=== PATIENT | male | born 1985 | race Caucasian/White ===

== ENCOUNTER 2020-04-16 16:11 | Inpatient (IN) | payer SELFPAY ==
[2020-04-16] VITALS (22 sets, daily range): BP systolic 114–145; BP diastolic 57–75; PULSE 96–103; RESP 16–20; TEMP 37.1–38.2; O2SAT 90–100; BMI 27.3
--- NOTE | ~2020-04-16 | XR_ITS ---
EXAMINATION: XR chest 2V EXAM DATE: 04/19/2020 12:21 INDICATION: Staph + blood cultures, kidney stone . TECHNIQUE: Frontal and lateral projections of the chest obtained and reviewed. Comparison is made to prior examination from 06/09/2006. FINDINGS: The lungs are clear. There are no pleural effusions. The cardiomediastinal silhouette is within normal limits. There is no pneumothorax suspected. The bones and soft tissues are unremarkab le. IMPRESSION: Normal chest x-ray exam. Reviewed, dictated and finalized at location A. LICENSER IMPRESSION: Normal chest x-ray exam.
--- NOTE | ~2020-04-16 | XR_ITS ---
EXAMINATION: XR retrograde pyelo w/stent RT DATE: 04/17/2020 11:25 INDICATION: Right ureteral stone. TECHNIQUE: 69 intraoperative fluoroscopic views of the abdomen and pelvis were obtained. I was not pr esent. Fluoroscopy exposure time was 27 seconds. COMPARISON: CT abdomen and pelvis 04/16/2020 FINDINGS: There is a persistent right-sided contrast nephrogram. There is a stone at the right ureter opelvic junction. The final images demonstrate a right internal ureteral stent in expected position. IMPRESSION: 1. Stone at the right ureteropelvic junction. Right internal ureteral stent in expected position. Reviewed, dictated and finalized at location A. RED CAR GUARD
--- NOTE | ~2020-04-16 | CT_ITS ---
EXAMINATION: CT abdomen pelvis w con DATE: 04/16/2020 17:27 INDICATION: Abdominal pain, nausea and diarrhea TECHNIQUE: Computed tomography (CT) of the abdomen and pelvis was performed with 100 mL Omnipaque-350 intravenous contrast. Automated exposure control and iterative reconstruction technique were employe d. The dose-length product was 1180.56 mGy-cm. COMPARISON: None FINDINGS: Lung bases are clear. Heart size is normal. No pericardial or pleural effusion. Liver, gallbladder, s pleen, pancreas and bilateral adrenal glands are normal. There are few tiny subcentimeter cysts in th e left kidney. 6 x 4 mm obstructing stone at the right ureteropelvic junction with mild right hydrone phrosis and mildly delayed right nephrogram. There is mild associated stranding about the right renal pelvis, proximal right ureter and inferior right perirenal space. Additional 3 mm and 1 mm stones in the inferior calyces of the right kidney. No stones at the left kidney or along the bilateral ureter s. Bladder is normal. There is some fluid within nondilated small bowel as well as in the proximal co holly consistent with given history of diarrhea. No bowel obstruction or abnormal bowel wall thickening . No free intraperitoneal gas or fluid. No pathologically enlarged abdominal or pelvic lymphadenopath y. Chronic mild anterior wedging at T9-T11 with mild to moderate lower thoracic spondylosis. Bilatera l decreased anterosuperior femoral head/neck offset with associated cystic change at the anterosuperi or femoral head neck junctions which can be seen with cam-type femoral acetabular impingement. IMPRESSION: 1. Right nephrolithiasis with obstructing 6 x 4 mm stone at the right ureteropelvic junction with mil d hydronephrosis and mildly delayed right nephrogram. Correlate with urinalysis to exclude associated urinary tract infection. Reviewed, dictated and finalized at location . IOLOGIST IMPRESSION: 1. Right nephrolithiasis with obstructing 6 x 4 mm stone at the right ureterope lvic junction with mild hydronephrosis and mildly delayed right nephrogram. Cor relate with urinalysis to exclude associated urinary tract infection.
[2020-04-16 16:42] LABS: Basophils Absolute Auto 0.1 K/mm3 (0.0-0.1); Basophils Percent Auto 0.3 % (0.2-1.2); Eosinophils Percent Auto 0.1 % (0-4.4); Hematocrit 40.4 % (42.0-52.0); Hemoglobin 13.7 g/dL (14.0-18.0); Immature Granulocyte Absolute 0.17 K/mm3 (0.00-0.031); Immature Granulocyte Percent A 0.7 % (0-0.5); Lymphocytes Absolute Auto 1.35 K/mm3 (0.9-3.2); Lymphocytes Percent Auto 5.9 % (18.3-44.2); Mean Corpuscular HGB Conc 33.9 g/dl (32-36); Mean Corpuscular Hemoglobin 30.6 pg (26-34); Mean Corpuscular Volume 90.4 fl (80-100); Mean Platelet Volume 10.5 fl (7.4-10.4); Monocytes Absolute Auto 1.8 K/mm3 (0.1-0.6); Neutrophils Absolute Auto 19.4 K/mm3 (1.3-6.7); Platelet Count Result 240 k/mm3 (150-375); Red Blood Count 4.47 M/mm3 (4.6-6.20); Red Cell Distribution Width 12.7 % (11.5-14.5); White Blood Count 22.8 K/mm3 (4.5-10.0)
[2020-04-16] MEDS: ONDANSETRON INJ 4 MG/2 ML VIAL IV PUSH (16:43)
[2020-04-16] MEDS: SODIUM CHLORIDE 0.9% IV 1,000 ML 999 ML IV CONT ×3 (16:43→19:33)
[2020-04-16] MEDS: FAMOTIDINE 20 MG/2 ML VIAL IV PUSH (16:43)
--- NOTE | 2020-04-16 16:51 | ED.ABDPAIN ---
HPI - Abdominal Pain General Chief Complaint: Abdominal Pain Stated Complaint: abd/back pain, poss constipation Time Seen by Provider: 04/16/20 16:19 Source: patient Mode of arrival: ambulatory Limitations: no limitations History of Present Illness HPI narrative: Patient a 34-year-old male who presents with left lower abdominal pain for the last 2 days with chills sweats and some nausea believes that he was constipation but does not have a history of ever being constipated patient notes he has also had some mild discomfort in his back patient presents in no distress does not appear uncomfortable nothing is made the symptoms better or worse despite the [id number] laxative medications he took patient has had no improvement patient denies sick contacts or URI symptoms Related Data Home Medications Medication Instructions Recorded Confirmed No Home Medications 04/16/20 04/16/20 Allergies Allergy/AdvReac Type Severity Reaction Status Date / Time Penicillins AdvReac Unknown Unknown Verified 04/16/20 16:30 Review of Systems Review of Systems: All systems reviewed & are unremarkable except as noted in HPI and below Exam Narrative: Exam Narrative: GENERAL: Well-appearing, well-nourished, and in no acute distress. HEAD: Normocephalic, atraumatic. EYES: PERRLA and EOMI. ENT: Nares clear, no rhinorrhea or epistaxis. Mucous membranes moist. CHEST: Clear to auscultation. No respiratory distress. No wheezes rales or rhonchi HEART: Regular rate and rhythm. No murmur heard. Normal peripheral pulses. ABDOMEN: Soft, left lower quadrant abdominal pain no rebound or guarding, nondistended, normal active bowel sounds. EXTREMITIES: Normal range of motion. No edema. SKIN: Warm, dry, no rash. NEURO: No focal deficits. Alert and oriented x3. Cranial nerves II through XII grossly intact PSYCH: Normal mood and affect. Course Course Emergency Course: Patient found to have kidney stone is the likely etiology with potential urinary tract infection will be placed in hospital hydrated pain managed and evaluated by hospitalist and urology with potential for stent placement in the morning patient is aware of the findings and discussions and agrees with the plan Consultations Consultation #1: Discussed case with urology in hospital who have agreed to admit and consult on the patient Date: 04/16/20 Time: 20:20 Vital Signs Vital signs: Vital Signs Temperature 98.8 F 04/16/20 16:15 Pulse Rate 102 H 04/16/20 16:15 Respiratory Rate 18 04/16/20 16:15 Blood Pressure 129/75 04/16/20 16:15 Pulse Oximetry 98 04/16/20 16:15 Temperature 98.8 F 04/16/20 16:15 Pulse Rate 102 H 04/16/20 16:15 Respiratory Rate 18 04/16/20 16:15 Blood Pressure 114/68 04/16/20 18:31 Pulse Oximetry 96 04/16/20 19:18 MDM - Abdominal Pain MDM Narrative Medical decision making narrative: Patient with urolithiasis urinary tract infection will be placed in hospital hydrated IV antibiotics with urology consult. Patient's pain is well controlled at this time Lab Data Result diagrams: 04/16/20 16:33 04/16/20 16:33 Labs: Lab Results 04/16/20 04/16/20 04/16/20 Range/Units 16:33 16:33 19:20 WBC 22.8 H (4.5-10.0) K/mm3 RBC 4.47 L (4.6-6.20) M/mm3 Hgb 13.7 L (14.0-18.0) g/dL Hct 40.4 L (42.0-52.0) % MCV 90.4 (80-100) fl MCH 30.6 (26-34) pg MCHC 33.9 (32-36) g/dl RDW 12.7 (11.5-14.5) % Plt Count 240 (150-375) k/mm3 MPV 10.5 H (7.4-10.4) fl Immature Gran % (Auto) 0.7 H (0-0.5) % Neut % (Auto) 85.0 H (45.5-73.1) % Lymph % (Auto) 5.9 L (18.3-44.2) % [place] % (Auto) 8.0 (2.6-8.5) % Eos % (Auto) 0.1 (0-4.4) % Baso % (Auto) 0.3 (0.2-1.2) % Lymph # (Auto) 1.35 (0.9-3.2) K/mm3 [place] # (Auto) 1.8 H (0.1-0.6) K/mm3 Eos # (Auto) 0.0 (0-0.3) K/mm3 Baso # (Auto) 0.1 (0.0-0.1) K/mm3 Abs Immat Gran (auto) 0.17 H (0.00-0.0
[2020-04-16 16:56] LABS: Alanine Aminotransferase 36 U/L (4-50); Albumin Level 4.4 g/dL (3.5-5.1); Alkaline Phosphatase 103 U/L (38-126); Anion Gap 7 mmol/L (8-16); Aspartate Amino Transferase 35 U/L (17-59); Bilirubin,Total 1.4 mg/dL (0.2-1.3); Blood Urea Nitrogen 19 mg/dL (9-20); Calcium 8.9 mg/dL (8.4-10.2); Carbon Dioxide 27 mmol/L (22-30); Chloride 100 mmol/L (98-107); Estimated CRCL calculation 73 ml/min; Estimated Glomerular Filt Rate 46; Glucose 106 mg/dL (75-110); Lipase 67 U/L (23-300); Potassium 3.9 mmol/L (3.4-5.0); Sodium 134 mmol/L (137-145)
--- NOTE | 2020-04-16 18:20 | PC.NURSE ---
Pt still unable to provide urine sample.
[2020-04-16] MEDS: MORPHINE SULFATE (*CRX) 4 MG/ML INJ IV PUSH ×2 (18:27→22:01)
[2020-04-16 19:40] LABS: Add Urine Microscopic? YES; Amorphous Sediment Urine Few; Appearance Urine Clear (Clear); Bacteria Urine Trace /hpf; Bilirubin Urine Negative (Negative); Blood Urine 1+ (Negative); Color Urine Yellow (Yellow); Glucose Urine UA Negative (Negative); Ketones Urine Negative (Negative); Leukocyte Esterase Ur 1+ LEU/UL (Negative); Mucus Urine Heavy /lpf; Nitrate Urine Negative (Negative); Protein Urine 1+ mg/dL (Negative); RBC Urine >75 /hpf (0-2); Urobilinogen Urine Negative mg/dL (<2.0); WBC Urine 51-75 /hpf
[2020-04-16 19:43] LABS: Specific Grav Ur 1.045 (1.001-1.035)
--- NOTE | 2020-04-16 21:18 | PM.IMHP ---
H&P: HPI History of Present Illness Date/Time: 04/16/20 21:18 Chief complaint: urolithiasis/acute kidney injury/UTI Narrative: This is a pleasant 34 year old male who presented to the hospital with 2 days of lower abdominal pain, diaphoresis, chills, and nausea. The patient started to notice that he was developing right lower back pain as well which did not seem to radiate anywhere. Initially he believes he may have been constipated because he believed he was bloated. He has been taking acetaminophen Advil at home for his pain. His pain was severe in nature and no position made it better. On arrival to the emergency room the patient was evaluated and found to be septic with tachycardia and leukocytosis of 22,800. Urinalysis was grossly abnormal. CT abdomen pelvis demonstrated a right nephrolithiasis with obstructing 6 x 4 mm stone at the right ureteropelvic junction with mild hydronephrosis and mildly delayed right nephrogram. the patient has no previous history of renal stones although he mentions that his great grandfather did. He denies any hematuria, chest pain, shortness of breath, cough, diarrhea, or rectal bleeding. We been asked to admit the patient to the hospital overnight for treatment of his complicated urinary tract infection and urology has been consulted for his renal stone. He has no other complaints at this time. Review of Systems Review of Systems: All systems reviewed & are unremarkable except as noted in HPI and below PMFSH Past Medical History Medical History No pertinent past medical history Family History Family History Grandparent Nephrolithiasis Social History Social History Tobacco type: e-cigarettes/vaping Alcohol intake: never Substance use: never Comments Past surgical history is reviewed and noncontributory. Meds Home Medications and Allergies Home Medications Medication Instructions Recorded Confirmed Type No Home Medications 04/16/20 04/16/20 History Allergies Allergy/AdvReac Type Severity Reaction Status Date / Time Penicillins AdvReac Unknown Unknown Verified 04/16/20 16:30 Vital Signs Vital Signs - 24 hr 04/16/20 16:15 04/16/20 16:20 04/16/20 16:30 Temperature 37.1 C Pulse Rate 102 H Respiratory Rate 18 Blood Pressure 129/75 Pulse Oximetry 98 96 95 04/16/20 16:31 04/16/20 16:32 04/16/20 16:45 Temperature Pulse Rate Respiratory Rate Blood Pressure 116/61 Pulse Oximetry 97 97 97 04/16/20 16:46 04/16/20 17:00 04/16/20 17:01 Temperature Pulse Rate Respiratory Rate Blood Pressure 119/65 114/62 Pulse Oximetry 98 99 97 04/16/20 17:30 04/16/20 17:31 04/16/20 17:45 Temperature Pulse Rate Respiratory Rate Blood Pressure 124/69 Pulse Oximetry 90 100 99 04/16/20 17:46 04/16/20 18:02 04/16/20 18:15 Temperature Pulse Rate Respiratory Rate Blood Pressure 121/71 Pulse Oximetry 98 98 97 04/16/20 18:31 04/16/20 18:32 04/16/20 19:18 Temperature Pulse Rate Respiratory Rate Blood Pressure 114/68 Pulse Oximetry 98 96 96 04/16/20 20:20 04/16/20 20:50 Temperature Pulse Rate 96 101 H Respiratory Rate 20 20 Blood Pressure 127/73 129/59 L Pulse Oximetry 99 100 Exam Const: General: cooperative, alert, awake, acute distress moderate, ill appearing and other ( diaphoretic) Nutritional Appearance: obese Orientation/consciousness: patient oriented x3 HENMT: Head: normal to inspection General nose exam: Normal external nose present Face and sinus: normal facial exam Mouth: Yes Normal oral and palatal mucosa present and Yes oropharynx normal Eyes: Pupils: Equal, round and reactive pupils present EOM: EOMs intact bilaterally Neck: Neck: supple and no JVD Thyroid: thyroid normal Lymphatic: l
--- NOTE | 2020-04-16 21:20 | ADMGEN ---
This patient, Ashok Osullivan, was admitted to Medical Room 250-01. Patient/family oriented to hospital policies and general routines including ID bracelet, bed and alarms, visiting hours, pain management, procedures, bathroom and other care routines, personal items, smoking policy, room service/diet, and visiting hours. Information on how to activate the Rapid Response Team has been discussed. Patient/Family are encouraged to report perceived risks to care and to ask questions if they do not understand what they are told or what they should do.
[2020-04-16] MEDS: LACTATED RINGERS 1,000 ML 125 ML IV CONT (22:00)
[2020-04-17] VITALS (11 sets, daily range): BP systolic 93–123; BP diastolic 51–64; PULSE 74–111; RESP 14–20; TEMP 36.2–37.9; O2SAT 92–100
[2020-04-17] MEDS: FAMOTIDINE 20 MG/2 ML VIAL IV PUSH ×3 (00:37→20:12)
[2020-04-17 05:23] LABS: Basophils Percent Auto 0.2 % (0.2-1.2); Hematocrit 35.2 % (42.0-52.0); Hemoglobin 11.9 g/dL (14.0-18.0); Immature Granulocyte Absolute 0.12 K/mm3 (0.00-0.031); Immature Granulocyte Percent A 0.7 % (0-0.5); Lymphocytes Absolute Auto 0.86 K/mm3 (0.9-3.2); Lymphocytes Percent Auto 4.9 % (18.3-44.2); Mean Corpuscular HGB Conc 33.8 g/dl (32-36); Mean Corpuscular Hemoglobin 30.1 pg (26-34); Mean Corpuscular Volume 88.9 fl (80-100); Mean Platelet Volume 10.8 fl (7.4-10.4); Monocytes Absolute Auto 1.7 K/mm3 (0.1-0.6); Monocytes Percent Auto 9.9 % (2.6-8.5); Neutrophils Absolute Auto 14.7 K/mm3 (1.3-6.7); Neutrophils Percent Auto 84.3 % (45.5-73.1); Platelet Count Result 198 k/mm3 (150-375); Red Blood Count 3.96 M/mm3 (4.6-6.20); Red Cell Distribution Width 12.9 % (11.5-14.5); White Blood Count 17.4 K/mm3 (4.5-10.0)
[2020-04-17 05:40] LABS: Anion Gap 7 mmol/L (8-16); Blood Urea Nitrogen 15 mg/dL (9-20); Calcium 8.1 mg/dL (8.4-10.2); Carbon Dioxide 24 mmol/L (22-30); Chloride 105 mmol/L (98-107); Estimated CRCL calculation 73 ml/min; Estimated Glomerular Filt Rate 46; Glucose 119 mg/dL (75-110); Potassium 3.8 mmol/L (3.4-5.0); Sodium 136 mmol/L (137-145)
[2020-04-17] MEDS: LACTATED RINGERS 1,000 ML 125 ML IV CONT ×2 (07:44→18:12)
[2020-04-17] MEDS: MORPHINE SULFATE (*CRX) 2 MG/ML INJ IV PUSH (07:59)
--- NOTE | 2020-04-17 08:48 | WPDURCON ---
Assessment and Plan Assessment and plan (1) Complicated UTI (urinary tract infection): Code(s): N39.0 - Urinary tract infection, site not specified Status: Acute (2) Right ureteral stone: Code(s): N20.1 - Calculus of ureter Status: Acute Assessment and Plan: Cystoscopy with right ureteral stent placement today (by Dr. Josias Dsouza). Right ESWL [id number], as outpatient - after thorough treatment of UTI. Urology Consult Note HPI Date Seen: 04/17/20 Requesting Physician: Bimal Davalos MD Primary Care Provider: Layla Moore, PA-C Consult Narrative Narrative: Ashok Osullivan is a 34 year old male without prior history of urolithiasis, presents to ER with 36-hours low-back pain, nausea and diaphoresis. CT-imaging in ER reveals a 6x4mm right UPJ stone. He denies gross hematuria, fever or significant irritable voiding. Review of Systems Cardiovascular: Cardiovascular: Denies chest pain, Denies lightheadedness, Denies palpitations and Denies dyspnea Respiratory: Respiratory: Denies dyspnea Gastrointestinal: Gastrointestinal: Denies diarrhea, Denies nausea and Denies vomiting Genitourinary: Genitourinary: Denies hematuria and Denies dysuria Endocrine: Endocrine: Denies palpitations PMFSH Past Medical History Medical History No pertinent past medical history Family History Family History Grandparent Nephrolithiasis Lung cancer Father Lung cancer Mother Hypertension Social History Social History Smoking status: Former smoker Tobacco type: e-cigarettes/vaping Second hand tobacco smoke exposure: Yes Alcohol intake: never Substance use: never Gender identity (if verbalized by the patient): Male Spiritual care concerns: No Meds Home Medications and Allergies Home Medications Medication Instructions Recorded Confirmed Type No Home Medications 04/16/20 04/16/20 History Allergies Allergy/AdvReac Type Severity Reaction Status Date / Time Penicillins AdvReac Unknown Unknown Verified 04/16/20 22:10 Vital Signs Vital Signs - 24 hr 04/16/20 16:15 04/16/20 16:20 04/16/20 16:30 Temperature 98.8 F Pulse Rate 102 H Respiratory Rate 18 Blood Pressure 129/75 Pulse Oximetry 98 96 95 04/16/20 16:31 04/16/20 16:32 04/16/20 16:45 Temperature Pulse Rate Respiratory Rate Blood Pressure 116/61 Pulse Oximetry 97 97 97 04/16/20 16:46 04/16/20 17:00 04/16/20 17:01 Temperature Pulse Rate Respiratory Rate Blood Pressure 119/65 114/62 Pulse Oximetry 98 99 97 04/16/20 17:30 04/16/20 17:31 04/16/20 17:45 Temperature Pulse Rate Respiratory Rate Blood Pressure 124/69 Pulse Oximetry 90 100 99 04/16/20 17:46 04/16/20 18:02 04/16/20 18:15 Temperature Pulse Rate Respiratory Rate Blood Pressure 121/71 Pulse Oximetry 98 98 97 04/16/20 18:31 04/16/20 18:32 04/16/20 19:18 Temperature Pulse Rate Respiratory Rate Blood Pressure 114/68 Pulse Oximetry 98 96 96 04/16/20 20:20 04/16/20 20:50 04/16/20 21:35 Temperature 100.7 F H Pulse Rate 96 101 H 103 H Respiratory Rate 20 20 16 Blood Pressure 127/73 129/59 L 145/57 H Pulse Oximetry 99 100 96 04/16/20 22:00 04/17/20 05:52 04/17/20 08:07 Temperature 100.2 F H 100.3 F H Pulse Rate 111 H 104 H Respiratory Rate 16 18 Blood Pressure 123/51 L Pulse Oximetry 92 94 Exam Const: General: no acute distress Resp: Effort & Inspection: normal respiratory effort GI: Inspection: non-distended GI Palp: No abdominal tenderness and No Guarding due to palpation present (GI) Auscultation: normal bowel sounds Results Labs CBC & Chem 7: 04/17/20 04:58 04/17/20 04:58 Labs: Short CBC 04/16/20
--- NOTE | 2020-04-17 09:39 | PC.NURSE ---
to surgery via bed, tylenol infusing, almost complete
--- NOTE | 2020-04-17 09:57 | WPDANESEPPF ---
Anes - Initial Pre Proc Eval Procedure: Operation Date: 04/17/20 11:45 Proposed Procedures p Cystoscopy, Right Stent Placement(Right) - Sheng Dsouza MD Date/Time: 04/17/20 09:57 Surgeon: Bimal Davalos MD Pre Op Diagnosis: urolithiasis/acute kidney injury/UTI Patient Data Age: 34 Gender: M Height: 2.01 m Weight: 110.1 kg Last Vital Signs Temp 37.9 C H 04/17/20 05:52 Pulse 104 H 04/17/20 08:07 Resp 18 04/17/20 08:07 BP 123/51 L 04/17/20 05:52 Pulse Ox 94 04/17/20 08:07 Allergies Allergy/AdvReac Type Severity Reaction Status Date / Time Penicillins AdvReac Unknown Unknown Verified 04/16/20 22:10 Home Medications Medication Instructions Recorded Confirmed Type No Home Medications 04/16/20 04/16/20 History Laboratory Tests 04/16/20 04/16/20 04/16/20 16:33 16:33 19:20 WBC 22.8 K/mm3 H K/mm3 (4.5-10.0) RBC 4.47 M/mm3 L M/mm3 (4.6-6.20) Hgb 13.7 g/dL L g/dL (14.0-18.0) Hct 40.4 % L % (42.0-52.0) MCV 90.4 fl fl (80-100) MCH 30.6 pg pg (26-34) MCHC 33.9 g/dl g/dl (32-36) RDW 12.7 % % (11.5-14.5) Plt Count 240 k/mm3 k/mm3 (150-375) MPV 10.5 fl H fl (7.4-10.4) Immature Gran % (Auto) 0.7 % H % (0-0.5) Neut % (Auto) 85.0 % H % (45.5-73.1) Lymph % (Auto) 5.9 % L % (18.3-44.2) [place] % (Auto) 8.0 % % (2.6-8.5) Eos % (Auto) 0.1 % % (0-4.4) Baso % (Auto) 0.3 % % (0.2-1.2) Lymph # (Auto) 1.35 K/mm3 K/mm3 (0.9-3.2) [place] # (Auto) 1.8 K/mm3 H K/mm3 (0.1-0.6) Eos # (Auto) 0.0 K/mm3 K/mm3 (0-0.3) Baso # (Auto) 0.1 K/mm3 K/mm3 (0.0-0.1) Abs Immat Gran (auto) 0.17 K/mm3 H K/mm3 (0.00-0.031) Absolute Neuts (auto) 19.4 K/mm3 H K/mm3 (1.3-6.7) Absolute Nucleated RBC 0.0 K/mm3 K/mm3 (0.0-0.012) Nucleated RBC % 0.0 % % (0.0-0.2) Sodium 134 mmol/L L mmol/L (137-145) Potassium 3.9 mmol/L mmol/L (3.4-5.0) Chloride 100 mmol/L mmol/L (98-107) Carbon Dioxide 27 mmol/L mmol/L (22-30) Anion Gap 7 mmol/L L mmol/L (8-16) BUN 19 mg/dL mg/dL (9-20) Creatinine 1.70 mg/dL H mg/dL (0.7-1.3) Estim Creat Clear Calc 73 ml/min ml/min Estimated GFR 46 L (59 - ) Glucose 106 mg/dL mg/dL (75-110) Calcium 8.9 mg/dL mg/dL (8.4-10.2) Total Bilirubin 1.4 mg/dL H mg/dL (0.2-1.3) AST 35 U/L U/L (17-59) ALT 36 U/L U/L (4-50) Alkaline Phosphatase 103 U/L U/L (38-126) Total Protein 8.0 g/dL g/dL (6.3-8.2) Albumin 4.4 g/dL g/dL (3.5-5.1) Lipase 67 U/L U/L (23-300) Urine Color Yellow (Yellow) Urine Appearance Clear (Clear) Urine pH 7.0 (5.0-9.0) Ur Specific [place] 1.045 H (1.001-1.035) Urine Protein 1+ mg/dL H mg/dL (Negative) Urine Glucose (UA) Negative mg/dL mg/dL (Negative) Urine Ketones Negative mg/dL mg/dL (Negative) Ur Blood (Man) 1+ H (Negative) Urine Nitrate Negative (Negative) Urine Bilirubin Negative (Negative) Urine Urobilinogen Negative mg/dL mg/dL (<2.0) Leukocyte Esterase Rfl 1+ GENTRY/UL H GENTRY/UL (Negative) Urine RBC >75 /hpf H /hpf (0-2) Urine WBC 51-75 /hpf H /hpf Amorphous Sediment Few H (None) Urine Bacteria Trace /hpf /hpf Urine Mucus Heavy /lpf H /lpf 04/17/20 04/17/20 04:58 04:58 WBC 17.4 K/mm3 H K/mm3 (4.5-10.0) RBC 3.96 M/mm3 L M/mm3 (4.6-6.20) Hgb 11.9 g/dL L g/dL (14.0-18.0) Hct 35.2 % L % (42.0-52.0) MCV 88.9 fl fl (80-100) MCH 30.1 pg pg (26-34) MCHC
[2020-04-17] MEDS: LACTATED RINGERS 1,000 ML 30 ML IV CONT ×2 (10:22→11:35)
--- NOTE | 2020-04-17 11:08 | PM.IMPN ---
Progress Note: A&P Assessment and Plan (1) Complicated UTI (urinary tract infection): Code(s): N39.0 - Urinary tract infection, site not specified Status: Acute Assessment and Plan: Suspect associated with obstructive uropathy. UA grossly abnormal. Continue IV rocephin (day 2) while awaiting urine cultures. Obtain blood cultures this morning although results may be altered as he received abx last night. (2) Sepsis: Qualifiers: Sepsis type: sepsis due to unspecified organism Sepsis acute organ dysfunction status: with acute organ dysfunction Severe sepsis acute organ dysfunction type: acute renal failure Acute renal failure type: unspecified Severe sepsis shock status: without septic shock Qualified Code(s): A41.9 - Sepsis, unspecified organism; R65.20 - Severe sepsis without septic shock; N17.9 - Acute kidney failure, unspecified Code(s): A41.9 - Sepsis, unspecified organism Status: Acute Assessment and Plan: Evidenced by fever, tachycardia, leukocytosis. Suspected source is above. Continue IV antibiotics, monitor cultures, monitor vital signs and urine output. (3) Urolithiasis: Qualifiers: Urinary calculus location: lower urinary tract Qualified Code(s): N21.9 - Calculus of lower urinary tract, unspecified Code(s): N20.9 - Urinary calculus, unspecified Status: Acute Assessment and Plan: Patient presents with right flank pain. CT shows right nephrolithiasis with obstructing 6 x 4 mm stone at right UPJ, associated mild hydronephrosis. Appreciate urology recommendations. Plan is for cysto/ R ureteral stent placement this morning. (4) Acute kidney injury: Code(s): N17.9 - Acute kidney failure, unspecified Status: Acute Assessment and Plan: Suspect secondary to obstructive nephrolithiasis. Continue IV hydration, avoid nephrotoxic agents, and monitor renal function. (5) Tobacco dependence: Code(s): F17.200 - Nicotine dependence, unspecified, uncomplicated Status: Chronic Assessment and Plan: Smoking cessation education provided. Subjective Date/time seen: 04/17/20 0915 Interval history: Mr. Osullivan is a 34yo M admitted for UTI and obstructive right ureteral stone. He has been seen by urology and is heading to OR soon for right ureteral stent placement. This morning he reports a frontal headache and right flank pain that wraps to groin. He denies nausea or vomiting. Had chills with fever overnight. He denies chest pain or shortness of breath, although sometimes the sharp shooting pain to right flank takes his breath away. He denies dysuria or hematuria. Review of Systems Review of Systems: All systems reviewed & are unremarkable except as noted in HPI and below Exam Narrative: Exam Narrative: General: Male resting comfortably supine in bed in no acute distress. HEENT: Normocephalic, EOMI, oral mucosa moist. Cardiovascular: Rate and rhythm are regular. Respiratory: Lungs clear to auscultation all childress. Non-labored breathing. Abdomen: Soft, non-distended, bowel sounds present. Right lower quadrant and right flank tender to palpation without guarding. Extremities: Peripheral pulses intact. No edema. Neuro: No focal neurological deficits. Speech is clear. Objective Data Vital Signs Vital Signs: Last Vital Signs Temp 97.7 F 04/17/20 11:23 Pulse 80 04/17/20 11:50 Resp 18 04/17/20 11:50 BP 100/51 L 04/17/20 11:50 Pulse Ox 93 04/17/20 11:50 Intake/Output Intake/Output: Intake & Output 04/14/20 04/15/20 04/16/20 04/17/20 23:59 23:59 23:59 23:59 Intake Total 3050 1600 Output Total 2350 Balance 3050 -750 Meds/Results Medications: Active Medications
--- NOTE | 2020-04-17 11:16 | P.OP_ITS ---
Procedure Note - Detailed Date of procedure: 04/17/20 Pre-op diagnosis: urolithiasis/acute kidney injury/UTI Post-op diagnosis: same Procedure performed: Cystoscopy, right retrograde pyelogram, right stent Description of procedure: She was correctly identified and informed consent obtained. Brought to the operating room. Given mac anesthesia. He was prepped and draped in sterile fashion. Time-out performed. Cystoscopy revealed normal- appearing bladder without abnormalities. If the stone is visible on fluoroscopy. I did a gentle retrograde pyelogram on the right to highlight ureteral anatomy. The stone was seen at the ureteropelvic junction. I placed a guidewire into the kidney. I placed 4.8 ureteral stent. Proximal coil in the upper pole kidney. Distal coil the bladder. The bladder was drained. Awakened transferred to PACU stable condition. Anesthesia: MAC Surgeon: Sheng Dsouza MD Estimated blood loss (mL): 0 Drains: Yes (4.8 variable length stent) Packing: No Pathology: none sent Complications: No immediate complications Condition: stable Disposition: PACU
[2020-04-17] MEDS: LIDOCAINE HCL 2% GEL UROJET 10 ML PKG MUCOUS MEM (11:18)
--- NOTE | 2020-04-17 12:09 | PC.NURSE ---
pt returned from surgery via bed, able to ambulate to bathroom without difficulty, doing well
[2020-04-17] MEDS: HYDROcodone/acetaminophen (*CRX) 5-325 MG TABLET 2 TAB PO ×2 (13:44→22:58)
[2020-04-17] MEDS: OXYBUTYNIN CHLORIDE 5 MG TABLET PO (13:46)
[2020-04-18 02:00] VITALS: BP 103/52; PULSE 87; RESP 20; TEMP 36.5; O2SAT 99
[2020-04-18] MEDS: LACTATED RINGERS 1,000 ML 125 ML IV CONT ×3 (02:49→19:43)
[2020-04-18 05:54] LABS: Basophils Percent Auto 0.3 % (0.2-1.2); Eosinophils Absolute Auto 0.1 K/mm3 (0-0.3); Eosinophils Percent Auto 1.3 % (0-4.4); Hematocrit 32.2 % (42.0-52.0); Hemoglobin 10.6 g/dL (14.0-18.0); Immature Granulocyte Absolute 0.04 K/mm3 (0.00-0.031); Immature Granulocyte Percent A 0.4 % (0-0.5); Lymphocytes Absolute Auto 1.11 K/mm3 (0.9-3.2); Lymphocytes Percent Auto 12.2 % (18.3-44.2); Mean Corpuscular HGB Conc 32.9 g/dl (32-36); Mean Corpuscular Volume 91.2 fl (80-100); Mean Platelet Volume 10.7 fl (7.4-10.4); Monocytes Absolute Auto 0.9 K/mm3 (0.1-0.6); Monocytes Percent Auto 9.3 % (2.6-8.5); Neutrophils Percent Auto 76.5 % (45.5-73.1); Platelet Count Result 170 k/mm3 (150-375); Red Blood Count 3.53 M/mm3 (4.6-6.20); Red Cell Distribution Width 13.2 % (11.5-14.5); White Blood Count 9.1 K/mm3 (4.5-10.0)
[2020-04-18 06:00] VITALS: BP 111/61; PULSE 85; RESP 20; TEMP 36.4; O2SAT 98
[2020-04-18 06:05] LABS: Anion Gap 5 mmol/L (8-16); Blood Urea Nitrogen 13 mg/dL (9-20); Calcium 7.9 mg/dL (8.4-10.2); Carbon Dioxide 29 mmol/L (22-30); Chloride 103 mmol/L (98-107); Estimated CRCL calculation 89 ml/min; Estimated Glomerular Filt Rate 58; Glucose 105 mg/dL (75-110); Magnesium 2.2 mg/dL (1.6-2.3); Potassium 3.9 mmol/L (3.4-5.0); Sodium 137 mmol/L (137-145)
[2020-04-18] MEDS: BISACODYL 5 MG TABLET EC PO (09:28)
[2020-04-18] MEDS: HYDROcodone/acetaminophen (*CRX) 5-325 MG TABLET 2 TAB PO (09:29)
[2020-04-18] MEDS: polyethylene glycoL 3350 17 GM POWD.PACK PO (09:29)
[2020-04-18 10:15] VITALS: BP 123/69; PULSE 81; RESP 16; TEMP 37.4; O2SAT 97
[2020-04-18] MEDS: FAMOTIDINE 20 MG/2 ML VIAL IV PUSH ×2 (11:07→21:40)
[2020-04-18 13:55] VITALS: BP 132/70; PULSE 65; RESP 16; TEMP 36.7; O2SAT 97
--- NOTE | 2020-04-18 15:05 | PM.IMPN ---
Progress Note: A&P Assessment and Plan (1) Complicated UTI (urinary tract infection): Code(s): N39.0 - Urinary tract infection, site not specified Status: Acute Assessment and Plan: Suspect associated with obstructive uropathy. UA grossly abnormal although urine culture is negative. Continue IV rocephin (day 3). Blood cultures one of two is growing gram positive cocci; suspect this could be a contaminant but will keep patient overnight and repeat blood cultures. Hopeful for discharge tomorrow once organism is isolated if patient is feeling well. (2) Sepsis: Qualifiers: Sepsis type: sepsis due to unspecified organism Sepsis acute organ dysfunction status: with acute organ dysfunction Severe sepsis acute organ dysfunction type: acute renal failure Acute renal failure type: unspecified Severe sepsis shock status: without septic shock Qualified Code(s): A41.9 - Sepsis, unspecified organism; R65.20 - Severe sepsis without septic shock; N17.9 - Acute kidney failure, unspecified Code(s): A41.9 - Sepsis, unspecified organism Status: Acute Assessment and Plan: Evidenced by fever, tachycardia, leukocytosis. Suspected source is above. Continue IV antibiotics, monitor cultures, monitor vital signs and urine output. (3) Urolithiasis: Qualifiers: Urinary calculus location: lower urinary tract Qualified Code(s): N21.9 - Calculus of lower urinary tract, unspecified Code(s): N20.9 - Urinary calculus, unspecified Status: Acute Assessment and Plan: Patient presents with right flank pain. CT shows right nephrolithiasis with obstructing 6 x 4 mm stone at right UPJ, associated mild hydronephrosis. Appreciate urology recommendations, now s/p cysto/ R ureteral stent placement 04/17. (4) Acute kidney injury: Code(s): N17.9 - Acute kidney failure, unspecified Status: Acute Assessment and Plan: Suspect secondary to obstructive nephrolithiasis. Continue IV hydration, avoid nephrotoxic agents, and monitor renal function. (5) Tobacco dependence: Code(s): F17.200 - Nicotine dependence, unspecified, uncomplicated Status: Chronic Assessment and Plan: Smoking cessation education provided. (6) Constipation: Code(s): K59.00 - Constipation, unspecified Status: Acute Assessment and Plan: Start miralax and dulcolax. Subjective Date/time seen: 04/18/20 0930 Interval history: Mr. Osullivan is a 34yo M admitted for UTI and obstructive right ureteral stone POD#1 s/p right ureteral stent placement. He is feeling a bit improved today. His biggest complaint is abdominal bloating and constipation. Last BM 3 or 4 days ago per patient. He had hematuria last night and this morning. He denies nausea or vomiting. No chest pain or shortness of breath. Review of Systems Review of Systems: All systems reviewed & are unremarkable except as noted in HPI and below Exam Narrative: Exam Narrative: General: Male resting comfortably supine in bed in no acute distress. HEENT: Normocephalic, EOMI, oral mucosa moist. Cardiovascular: Rate and rhythm are regular. Respiratory: Lungs clear to auscultation all childress. Non-labored breathing. Abdomen: Soft, non-distended, bowel sounds present. Right lower quadrant and right flank discomfort to palpation without guarding but improved from yesterday. Extremities: Peripheral pulses intact. No edema. Neuro: No focal neurological deficits. Speech is clear. Objective Data Vital Signs Vital Signs: Last Vital Signs Temp 98.0 F 04/18/20 13:55 Pulse 65 04/18/20 13:55 Resp 16 04/18/20 13:55 BP 132/70 04/18/20 13:55 Pulse Ox 97
[2020-04-18 17:57] VITALS: BP 143/68; PULSE 71; RESP 18; TEMP 37.2; O2SAT 100
[2020-04-18] MEDS: ACETAMINOPHEN 325 MG TABLET 650 MG PO (19:40)
[2020-04-18 20:00] VITALS: BP 141/65; PULSE 64; RESP 20; TEMP 37.1; O2SAT 99
[2020-04-19 02:00] VITALS: BP 140/80; PULSE 67; RESP 20; TEMP 36.7; O2SAT 98
[2020-04-19] MEDS: HYDROcodone/acetaminophen (*CRX) 5-325 MG TABLET 2 TAB PO ×3 (05:31→20:47)
[2020-04-19] MEDS: LACTATED RINGERS 1,000 ML 125 ML IV CONT (05:31)
[2020-04-19] MEDS: OXYBUTYNIN CHLORIDE 5 MG TABLET PO (05:39)
[2020-04-19] MEDS: BISACODYL 5 MG TABLET EC PO (05:39)
[2020-04-19 06:00] VITALS: BP 139/80; PULSE 72; RESP 20; TEMP 36.9; O2SAT 98
[2020-04-19 06:13] LABS: Basophils Percent Auto 0.4 % (0.2-1.2); Eosinophils Absolute Auto 0.2 K/mm3 (0-0.3); Eosinophils Percent Auto 2.2 % (0-4.4); Hematocrit 35.6 % (42.0-52.0); Hemoglobin 11.8 g/dL (14.0-18.0); Immature Granulocyte Absolute 0.03 K/mm3 (0.00-0.031); Immature Granulocyte Percent A 0.4 % (0-0.5); Lymphocytes Absolute Auto 1.06 K/mm3 (0.9-3.2); Lymphocytes Percent Auto 13.4 % (18.3-44.2); Mean Corpuscular HGB Conc 33.1 g/dl (32-36); Mean Corpuscular Hemoglobin 29.5 pg (26-34); Mean Platelet Volume 11.4 fl (7.4-10.4); Monocytes Absolute Auto 0.7 K/mm3 (0.1-0.6); Monocytes Percent Auto 8.6 % (2.6-8.5); Neutrophils Absolute Auto 5.9 K/mm3 (1.3-6.7); Platelet Count Result 236 k/mm3 (150-375); Red Cell Distribution Width 12.8 % (11.5-14.5); White Blood Count 7.9 K/mm3 (4.5-10.0)
[2020-04-19 06:33] LABS: Alanine Aminotransferase 73 U/L (4-50); Albumin Level 3.7 g/dL (3.5-5.1); Alkaline Phosphatase 63 U/L (38-126); Anion Gap 10 mmol/L (8-16); Aspartate Amino Transferase 72 U/L (17-59); Bilirubin,Total 0.7 mg/dL (0.2-1.3); Blood Urea Nitrogen 12 mg/dL (9-20); Calcium 8.8 mg/dL (8.4-10.2); Carbon Dioxide 25 mmol/L (22-30); Chloride 104 mmol/L (98-107); Estimated CRCL calculation 111 ml/min; Estimated Glomerular Filt Rate > 60; Glucose 100 mg/dL (75-110); Potassium 3.6 mmol/L (3.4-5.0); Sodium 139 mmol/L (137-145)
[2020-04-19] MEDS: FAMOTIDINE 20 MG/2 ML VIAL IV PUSH ×2 (08:56→20:12)
[2020-04-19] MEDS: polyethylene glycoL 3350 17 GM POWD.PACK PO (08:56)
[2020-04-19 09:40] VITALS: BP 116/62; PULSE 65; RESP 18; TEMP 36.4; O2SAT 99
--- NOTE | 2020-04-19 10:09 | P.PNAN_ITS ---
Anes - Prog Note Post-Op Date/Time: 04/19/20 10:09 Cardiovascular status: normal Respiratory status: normal Airway patency: baseline Mental status: baseline Post-Op hydration status: normal Vital Signs: Last Vital Signs Temp 36.4 C 04/19/20 09:40 Pulse 65 04/19/20 09:40 Resp 18 04/19/20 09:40 BP 116/62 04/19/20 09:40 Pulse Ox 99 04/19/20 09:40 Pain Score (VAS): 2 I/O: Intake & Output 04/18/20 04/19/20 04/19/20 23:59 07:59 15:59 Intake Total 2660 2200 980 Output Total 900 1900 Balance 1760 300 980 Laboratory Tests 04/19/20 04:57 04/19/20 04:57 04/19/20 04/19/20 04:57 04:57 WBC 7.9 RBC 4.00 L Hgb 11.8 L Hct 35.6 L MCV 89.0 MCH 29.5 MCHC 33.1 RDW 12.8 Plt Count 236 MPV 11.4 H Immature Gran % (Auto) 0.4 Neut % (Auto) 75.0 H Lymph % (Auto) 13.4 L [place] % (Auto) 8.6 H Eos % (Auto) 2.2 Baso % (Auto) 0.4 Lymph # (Auto) 1.06 [place] # (Auto) 0.7 H Eos # (Auto) 0.2 Baso # (Auto) 0.0 Abs Immat Gran (auto) 0.03 Absolute Neuts (auto) 5.9 Absolute Nucleated RBC 0.0 Nucleated RBC % 0.0 Sodium 139 Potassium 3.6 Chloride 104 Carbon Dioxide 25 Anion Gap 10 BUN 12 Creatinine 1.10 Estim Creat Clear Calc 111 Estimated GFR > 60 Glucose 100 Calcium 8.8 Total Bilirubin 0.7 AST 72 H ALT 73 H Alkaline Phosphatase 63 Total Protein 7.0 Albumin 3.7 Microbiology 04/17/20 08:36 Blood Blood Culture - Preliminary 04/17/20 08:42 Blood Blood Culture - Preliminary Post-procedural complaints: none Patient Feedback: Patient satisfied with anesthetic care.
--- NOTE | 2020-04-19 10:45 | PM.IMPN ---
Progress Note: A&P Assessment and Plan (1) Urolithiasis: Qualifiers: Urinary calculus location: lower urinary tract Qualified Code(s): N21.9 - Calculus of lower urinary tract, unspecified Code(s): N20.9 - Urinary calculus, unspecified Status: Acute Assessment and Plan: Patient presents with right flank pain. CT shows right nephrolithiasis with obstructing 6 x 4 mm stone at right UPJ, associated mild hydronephrosis. Appreciate urology recommendations, now s/p cysto/ R ureteral stent placement 04/17. (2) Positive blood culture: Code(s): R78.81 - Bacteremia Status: Acute Assessment and Plan: Initial blood cultures were drawn 04/17 (one dose of ceftriaxone was given prior to these being drawn, drawn prior to OR) now growing Staph aureus. Etiology unclear; No overt evidence of skin/soft tissue infection, denies IV drug use, no history of valvular disease or other devices. Obtain 2D echocardiogram tomorrow. Obtain CXR for completeness sake although pneumonia appears less likely. Continue vancomycin for now (started 04/18) and appreciate Dr Carvajal's recommendations in this setting. (3) Complicated UTI (urinary tract infection): Code(s): N39.0 - Urinary tract infection, site not specified Status: Acute Assessment and Plan: Suspect associated with obstructive uropathy now s/p right ureteral stent 04/17. UA grossly abnormal although urine culture is negative. Continue IV rocephin (day 4) for now pending ID consult. (4) Sepsis: Qualifiers: Sepsis type: sepsis due to unspecified organism Sepsis acute organ dysfunction status: with acute organ dysfunction Severe sepsis acute organ dysfunction type: acute renal failure Acute renal failure type: unspecified Severe sepsis shock status: without septic shock Qualified Code(s): A41.9 - Sepsis, unspecified organism; R65.20 - Severe sepsis without septic shock; N17.9 - Acute kidney failure, unspecified Code(s): A41.9 - Sepsis, unspecified organism Status: Acute Assessment and Plan: Evidenced by fever, tachycardia, leukocytosis. Suspected source was urinary however could be bloodborne given recent findings. Continue IV antibiotics, monitor cultures, monitor vital signs and urine output. (5) Acute kidney injury: Code(s): N17.9 - Acute kidney failure, unspecified Status: Acute Assessment and Plan: Resolved; Suspect secondary to obstructive nephrolithiasis. Stop IV fluids, avoid nephrotoxic agents, and monitor renal function. (6) Tobacco dependence: Code(s): F17.200 - Nicotine dependence, unspecified, uncomplicated Status: Chronic Assessment and Plan: Smoking cessation education provided. (7) Constipation: Qualifiers: Constipation type: unspecified constipation type Qualified Code(s): K59.00 - Constipation, unspecified Code(s): K59.00 - Constipation, unspecified Status: Acute Assessment and Plan: Continue miralax and dulcolax. Increase activity. Subjective Date/time seen: 04/19/20 0930 Interval history: Mr. Osullivan is a 34yo M admitted for UTI and obstructive right ureteral stone POD#2 s/p right ureteral stent placement. He is feeling improved today but still constipated. Hematuria is improving and almost resolved. He denies chest pain or shortness of breath. Tolerating oral intake without any nausea, vomiting, or abdominal pain. He denies any IV drug use in the past or recently. Review of Systems Review of Systems: All systems reviewed & are unremarkable except as noted in HPI and below Exam Narrative: Exam Narrative:
[2020-04-19 13:23] VITALS: BP 140/76; PULSE 66; RESP 18; TEMP 36.5; O2SAT 99
[2020-04-19 18:10] VITALS: BP 125/62; PULSE 70; RESP 18; TEMP 36.7; O2SAT 99
[2020-04-19 22:00] VITALS: BP 119/61; PULSE 58; RESP 21; TEMP 36.6; O2SAT 100
[2020-04-20] VITALS (7 sets, daily range): BP systolic 110–144; BP diastolic 60–84; PULSE 58–91; RESP 18–20; TEMP 36.3–37.1; O2SAT 98–100
--- NOTE | 2020-04-20 | ECHO_ITS ---
Patient Info Name: Ashok Osullivan Age: 34 years : 1985 Gender: Male Ht: 73 in Wt: 242 lbs BSA: 2.41 m2 HR: 60 bpm BP: 144 / 84 mmHg Heart Rhythm: Sinus Rhythm Technical Quality: Good Exam Date: 04/20/2020 10:36 AM Exam Location: [facility] Card Pulmonary Patient Status: Inpatient Admit Date: 04/16/2020 Staff Ordering Physician: Ana Lilia Pacheco PA-C Contract Attorney: Jamarcus Mesa RDCS Attending Provider: Ana Lilia Pacheco PA-C Exam Type: CA echo doppler color flow Study Info Indications R65.20 - Severe sepsis without septic shock Complete two-dimensional, color flow and Doppler transthoracic echocardiogram is performed. History/Risk Factors Sepsis w/ positive blood cultures w/ UTI. Summary 1. Complete two-dimensional, color flow and Doppler transthoracic echocardiogram is performed. 2. Left ventricular chamber dimension is normal. 3. Left ventricular systolic function is normal, estimated at 60-65%. 4. There is no increased left ventricular wall thickness. 5. The left ventricular diastolic function is normal. 6. There is mild tricuspid valve regurgitation. 7. No obvious endocarditis is seen although this is not a definitive study for analysis. Left Ventricle Left ventricular chamber dimension is normal. Left ventricular systolic function is normal, estimated at 60-65%. There is no increased left ventricular wall thickness. The left ventricular diastolic function is normal. Right Ventricle Right ventricular chamber dimension is normal. Right ventricular systolic function is normal. Left Atria Left atrial chamber dimension is normal. Right Atria Right atrial chamber dimension is normal. Atrial Septum Intact interatrial septum visualized by color flow imaging. Aortic Valve The aortic valve is trileaflet. There is no aortic valve sclerosis. There is no aortic valve stenosis. There is trace aortic valve regurgitation. Pulmonic Valve The pulmonic valve is normal. There is no pulmonic valve stenosis. There is trace pulmonic regurgitation. Mitral Valve The mitral valve has normal leaflets. There is no mitral valve stenosis. There is trace mitral valve regurgitation. Tricuspid Valve The tricuspid valve leaflets are normal. There is no significant tricuspid valve stenosis. There is mild tricuspid valve regurgitation. No pulmonary hypertension, estimated pulmonary arterial systolic pressure is 26 mmHg. Other Findings No obvious endocarditis is seen although this is not a definitive study for analysis. Pericardium/Pleural The pericardium appears normal. There is no pericardial effusion. Inferior Vena Cava Normal inferior vena cava with >50% collapse upon inspiration consistent with normal right atrial pressure, 5 mmHg. Aorta The aortic root size at the sinus of Valsalva is normal. Left Ventricular Outflow Tract Name Value Normal LVOT 2D LVOT Diameter 2.4 cm LVOT Doppler LVOT Peak Gradient 8 mmHg LVOT Mean Gradient 4 mmHg LVOT VTI 25 cm
[2020-04-20 05:59] LABS: Anion Gap 9 mmol/L (8-16); Blood Urea Nitrogen 13 mg/dL (9-20); Calcium 8.8 mg/dL (8.4-10.2); Carbon Dioxide 30 mmol/L (22-30); Chloride 100 mmol/L (98-107); Estimated CRCL calculation 122 ml/min; Estimated Glomerular Filt Rate > 60; Glucose 86 mg/dL (75-110); Potassium 3.7 mmol/L (3.4-5.0); Sodium 139 mmol/L (137-145)
[2020-04-20 06:02] LABS: Basophils Percent Auto 0.4 % (0.2-1.2); Eosinophils Absolute Auto 0.2 K/mm3 (0-0.3); Eosinophils Percent Auto 3.2 % (0-4.4); Hematocrit 41.9 % (42.0-52.0); Hemoglobin 13.8 g/dL (14.0-18.0); Immature Granulocyte Absolute 0.03 K/mm3 (0.00-0.031); Immature Granulocyte Percent A 0.4 % (0-0.5); Lymphocytes Absolute Auto 1.44 K/mm3 (0.9-3.2); Lymphocytes Percent Auto 19.4 % (18.3-44.2); Mean Corpuscular HGB Conc 32.9 g/dl (32-36); Mean Corpuscular Hemoglobin 30.1 pg (26-34); Mean Corpuscular Volume 91.3 fl (80-100); Mean Platelet Volume 10.9 fl (7.4-10.4); Monocytes Absolute Auto 0.6 K/mm3 (0.1-0.6); Monocytes Percent Auto 7.5 % (2.6-8.5); Neutrophils Absolute Auto 5.1 K/mm3 (1.3-6.7); Neutrophils Percent Auto 69.1 % (45.5-73.1); Platelet Count Result 278 k/mm3 (150-375); Red Blood Count 4.59 M/mm3 (4.6-6.20); White Blood Count 7.4 K/mm3 (4.5-10.0)
[2020-04-20 06:18] LABS: Vancomycin Trough 7.7 ug/mL (10.0-20.0)
[2020-04-20] MEDS: HYDROcodone/acetaminophen (*CRX) 5-325 MG TABLET 2 TAB PO (06:33)
[2020-04-20] MEDS: polyethylene glycoL 3350 17 GM POWD.PACK PO (07:47)
--- NOTE | 2020-04-20 08:07 | WPDUROPN2 ---
Progress Note: A&P Assessment and Plan (1) Right ureteral stone: Code(s): N20.1 - Calculus of ureter Status: Acute Assessment and Plan: okay for discharge from standpoint on pain meds and ABX. Will will call to set up stone management (2) Sepsis: Qualifiers: Sepsis type: sepsis due to unspecified organism Sepsis acute organ dysfunction status: with acute organ dysfunction Severe sepsis acute organ dysfunction type: acute renal failure Acute renal failure type: unspecified Severe sepsis shock status: without septic shock Qualified Code(s): A41.9 - Sepsis, unspecified organism; R65.20 - Severe sepsis without septic shock; N17.9 - Acute kidney failure, unspecified Code(s): A41.9 - Sepsis, unspecified organism Status: Acute Assessment and Plan: ABX per primary team/ID Subjective Subjective Date/Time Seen: 04/20/20 08:07 Tolerating stent. urine culture suprisingly negative. blood culture positive Exam Const: General: cooperative, healthy appearing, comfortable and no acute distress HENMT: Head: normal to inspection Mouth: Yes Normal oral and palatal mucosa present Resp: Effort & Inspection: normal respiratory effort and able to speak in complete sentences Neuro: General: patient oriented x3 Objective Data Vital Signs Vital Signs: Vital Signs - 24 hr 04/19/20 09:40 04/19/20 13:23 04/19/20 18:10 Temperature 97.6 F 97.7 F 98.0 F Pulse Rate 65 66 70 Respiratory Rate 18 18 18 Blood Pressure 116/62 140/76 125/62 Pulse Oximetry 99 99 99 04/19/20 22:00 04/20/20 02:00 04/20/20 06:00 Temperature 97.9 F 97.7 F 97.4 F L Pulse Rate 58 L 58 L 64 Respiratory Rate 21 H 20 20 Blood Pressure 119/61 110/63 128/60 Pulse Oximetry 100 98 99 Intake/Output Intake/Output: Intake & Output 04/17/20 04/18/20 04/19/20 04/20/20 23:59 23:59 23:59 23:59 Intake Total 4160 6100 6200 1080 Output Total 3200 2800 3150 1700 Balance 960 3300 3050 -620 Meds/Results Medications: Active Medications Generic Name Dose Route Start Last Admin Trade Name Freq PRN Reason Stop Dose Admin Acetaminophen 650 mg 04/20/20 07:25 Acetaminophen 325 Mg Tablet PO Q4H PRN Pain Rated 5 or Less Hydrocodone Bitart/Acetaminophen 1 tab 04/20/20 07:25 Hydrocodone/Acetaminophen (*Crx) 5-325 Mg Tablet PO Q6H PRN Pain Rated 6 or Greater Bisacodyl 5 mg 04/18/20 09:12 04/19/20 05:39 Bisacodyl 5 Mg Tablet Ec PO 5 mg QAM PRN Administration Constipation Famotidine 20 mg 04/16/20 21:00 04/19/20 20:12 Famotidine 20 Mg/2 Ml Vial IV PUSH 20 mg Q12HR JOE Administration Ceftriaxone Sodium/Dextrose 1 gm in 50 mls @ 100 mls/hr 04/17/20 21:00 04/19/20 20:45 Rocephin 1 Gm/D5w 50 Ml IVPB Infused Q24H JOE Infusion Vancomycin HCl 1,500 mg in 500 mls @ 333.333 mls/hr 04/18/20 19:00 04/20/20 06:20 Vancomycin 1,500 Mg/D5w 500 Ml IVPB 04/20/20 09:00 250 mls/hr Q12H JOE Administration Vancomycin HCl 1,750 mg in 500 mls @ 250 mls/hr 04/20/20 18:00 Vancomycin 1,750 Mg/D5w 500 Ml IVPB Q12H JOE Ondansetron HCl 4 mg 04/16/20 20:23 Ondansetron Inj 4 Mg/2 Ml Vial IV PUSH Q4H PRN Nausea Ondansetron HCl 4 mg 04/17/20 09:56 Ondansetron Inj 4 Mg/2 Ml Vial IV PUSH ONCE PRN Nausea Oxybutynin Chloride 5 mg 04/17/20 12:12 04/19/20 05:39 Oxybutynin Chloride 5 Mg Tablet PO 5 mg TID PRN Administration Dysuria Polyethylene Glycol 17 gm 04/18/20 09:00 04/20/20 07:47 Polyethylene Glycol 3350 17 Gm Powd.Pack PO 17 gm QAM JOE Administration Radiology Results: ITS Impressions Abdomen/Pelvis CT 04/16/20 17:43 IMPRESSION: 1. Right nephrolithiasis with obstructing 6 x 4 mm stone at the right ureteropelvic junction with mild hydronephrosis and mildly delayed right nephrogram. Correlate with urinalysis to exclude associated urinary tract infection. Retrograde Pyelogram 04/17/
[2020-04-20] MEDS: ACETAMINOPHEN 325 MG TABLET 650 MG PO (09:20)
[2020-04-20] MEDS: FAMOTIDINE 20 MG/2 ML VIAL IV PUSH ×2 (09:21→21:05)
--- NOTE | 2020-04-20 10:34 | PM.IMPN ---
Progress Note: A&P Assessment and Plan (1) Urolithiasis: Qualifiers: Urinary calculus location: lower urinary tract Qualified Code(s): N21.9 - Calculus of lower urinary tract, unspecified Code(s): N20.9 - Urinary calculus, unspecified Status: Acute Assessment and Plan: Patient presents with right flank pain. CT shows right nephrolithiasis with obstructing 6 x 4 mm stone at right UPJ, associated mild hydronephrosis. Appreciate urology recommendations, now s/p cysto/ R ureteral stent placement 04/17. (2) Positive blood culture: Code(s): R78.81 - Bacteremia Status: Acute Assessment and Plan: Initial blood cultures were drawn 04/17 (one dose of ceftriaxone was given prior to these being drawn, drawn prior to OR) now growing MRSA. He denies IV drug use, no history of valvular disease or other devices. Possible cutaneous source? He describes what may have been a soft tissue Staph infection to base of scalp 1 mo ago after a haircut which has now healed. Echocardiogram is pending. Continue vancomycin for now (started 04/18) and appreciate Dr Carvajal's recommendations in this setting. (3) Complicated UTI (urinary tract infection): Code(s): N39.0 - Urinary tract infection, site not specified Status: Acute Assessment and Plan: Suspect associated with obstructive uropathy now s/p right ureteral stent 04/17. UA grossly abnormal although urine culture is negative. Continue IV rocephin (day 5) for now pending ID consult and deescalate as appropriate. (4) Sepsis: Qualifiers: Sepsis type: sepsis due to unspecified organism Sepsis acute organ dysfunction status: with acute organ dysfunction Severe sepsis acute organ dysfunction type: acute renal failure Acute renal failure type: unspecified Severe sepsis shock status: without septic shock Qualified Code(s): A41.9 - Sepsis, unspecified organism; R65.20 - Severe sepsis without septic shock; N17.9 - Acute kidney failure, unspecified Code(s): A41.9 - Sepsis, unspecified organism Status: Acute Assessment and Plan: Evidenced by fever, tachycardia, leukocytosis. Suspected source was urinary vs. bloodborne. Continue IV antibiotics, ID consult, monitor cultures, monitor vital signs and urine output. (5) Acute kidney injury: Code(s): N17.9 - Acute kidney failure, unspecified Status: Resolved Assessment and Plan: Resolved; Suspect secondary to obstructive nephrolithiasis. Monitor renal function. (6) Tobacco dependence: Code(s): F17.200 - Nicotine dependence, unspecified, uncomplicated Status: Chronic Assessment and Plan: Smoking cessation education provided. (7) Constipation: Qualifiers: Constipation type: unspecified constipation type Qualified Code(s): K59.00 - Constipation, unspecified Code(s): K59.00 - Constipation, unspecified Status: Acute Assessment and Plan: Continue miralax and dulcolax. Increase activity. Subjective Date/time seen: 04/20/20 0945 Interval history: Mr. Osullivan is a 34yo M admitted for UTI and obstructive right ureteral stone POD#3 s/p right ureteral stent placement now MRSA bacteremia. He is feeling improved today. Hematuria has resolved. He denies chest pain or shortness of breath. He is tolerating oral intake without any nausea, vomiting, or abdominal pain. Upon further questioning regarding rashes or wounds he describes a getting a large pimple on the back of his head that he noticed after a haircut 1 month ago. He describes it as pimple-like that became large, he tried to squeeze it and it got very pain
--- NOTE | 2020-04-20 18:27 | WPDINFPN2 ---
Progress Note: A&P Assessment and Plan (1) Positive blood culture: Code(s): R78.81 - Bacteremia Status: Acute Assessment and Plan: MRSA bacteremia with infection, gu source REC Vanc through 05/02, then 2 weeks [id number] DS. PICC Subjective Date/time seen: 04/20/20 18:27 Objective Data Vital Signs Vital Signs: Vital Signs - 24 hr 04/19/20 22:00 04/20/20 02:00 04/20/20 06:00 Temperature 36.6 C 36.5 C 36.3 C L Pulse Rate 58 L 58 L 64 Respiratory Rate 21 H 20 20 Blood Pressure 119/61 110/63 128/60 Pulse Oximetry 100 98 99 04/20/20 08:00 04/20/20 12:00 04/20/20 16:00 Temperature 37.1 C 36.4 C L 36.8 C Pulse Rate 82 74 66 Respiratory Rate 18 18 18 Blood Pressure 144/84 H 128/75 133/80 Pulse Oximetry 98 100 100 Intake/Output Intake/Output: Intake & Output 04/17/20 04/18/20 04/19/20 04/20/20 23:59 23:59 23:59 23:59 Intake Total 4160 6100 6200 3240 Output Total 3200 2800 3150 2300 Balance 960 3300 3050 940 Meds/Results Medications: Active Medications Generic Name Dose Route Start Last Admin Trade Name Freq PRN Reason Stop Dose Admin Acetaminophen 650 mg 04/20/20 07:25 04/20/20 09:20 Acetaminophen 325 Mg Tablet PO 650 mg Q4H PRN Administration Pain Rated 5 or Less Hydrocodone Bitart/Acetaminophen 1 tab 04/20/20 07:25 Hydrocodone/Acetaminophen (*Crx) 5-325 Mg Tablet PO Q6H PRN Pain Rated 6 or Greater Bisacodyl 5 mg 04/18/20 09:12 04/19/20 05:39 Bisacodyl 5 Mg Tablet Ec PO 5 mg QAM PRN Administration Constipation Famotidine 20 mg 04/16/20 21:00 04/20/20 09:21 Famotidine 20 Mg/2 Ml Vial IV PUSH 20 mg Q12HR JOE Administration Ceftriaxone Sodium/Dextrose 1 gm in 50 mls @ 100 mls/hr 04/17/20 21:00 04/19/20 20:45 Rocephin 1 Gm/D5w 50 Ml IVPB Infused Q24H JOE Infusion Vancomycin HCl 1,750 mg in 500 mls @ 250 mls/hr 04/20/20 18:00 04/20/20 17:30 Vancomycin 1,750 Mg/D5w 500 Ml IVPB 250 mls/hr Q12H JOE Administration Lidocaine HCl 5 ml 04/20/20 18:25 Lidocaine Hcl 1% Pf Inj 5 Ml Vial INFILTRATE 04/20/20 18:26 ONCE ONE Ondansetron HCl 4 mg 04/16/20 20:23 Ondansetron Inj 4 Mg/2 Ml Vial IV PUSH Q4H PRN Nausea Ondansetron HCl 4 mg 04/17/20 09:56 Ondansetron Inj 4 Mg/2 Ml Vial IV PUSH ONCE PRN Nausea Oxybutynin Chloride 5 mg 04/17/20 12:12 04/19/20 05:39 Oxybutynin Chloride 5 Mg Tablet PO 5 mg TID PRN Administration Dysuria Polyethylene Glycol 17 gm 04/18/20 09:00 04/20/20 07:47 Polyethylene Glycol 3350 17 Gm Powd.Pack PO 17 gm QAM JOE Administration Radiology Results: ITS Impressions Abdomen/Pelvis CT 04/16/20 17:43 IMPRESSION: 1. Right nephrolithiasis with obstructing 6 x 4 mm stone at the right ureteropelvic junction with mild hydronephrosis and mildly delayed right nephrogram. Correlate with urinalysis to exclude associated urinary tract infection. Retrograde Pyelogram 04/17/20 11:36 IMPRESSION: 1. Stone at the right ureteropelvic junction. Right internal ureteral stent in expected position. Chest X-Ray 04/19/20 12:30 IMPRESSION: Normal chest x-ray exam. Labs Labs: Laboratory Results - last 24 hr 04/20/20 04/20/20 04/20/20 05:27 05:27 05:27 WBC 7.4 RBC 4.59 L Hgb 13.8 L Hct 41.9 L MCV 91.3 MCH 30.1 MCHC 32.9 RDW 13.0 Plt Count 278 MPV 10.9 H Immature Gran % (Auto) 0.4 Neut % (Auto) 69.1 Lymph % (Auto) 19.4 [place] % (Auto) 7.5 Eos % (Auto) 3.2 Baso % (Auto) 0.4 Lymph # (Auto) 1.44 [place] # (Auto) 0.6 Eos # (Auto) 0.2 Baso # (Auto) 0.0 Abs Immat Gran (auto) 0.03 Absolute Neuts (auto) 5.1 Absolute Nucleated RBC 0.0 Nucleated RBC % 0.0 Sodium 139 Potassium 3.7 Chloride 100 Carbon Dioxide 30 Anion Gap 9 BUN 13 Creatinine 1.00 Estim Creat Clear Calc 122 Estimated GFR > 60 Glucose 86 C
--- NOTE | 2020-04-20 20:09 | CONS_ITS ---
DATE OF CONSULTATION: 04/20/2020 REASON FOR CONSULTATION: Bacteremia with MRSA. HISTORY OF PRESENT ILLNESS: A 34-year-old male, basically healthy other than eczema. He knows no history of kidney stones, but presented to the hospital on the with left lower quadrant abdominal pain, chills, nausea, and back pain. He had no pre-existing hematuria grossly. He is found to have a left UPJ stone and was taken to the operating room on the . He underwent cystoscopy and right retrograde pyelogram with a stent. He has been on ceftriaxone since admission. Blood cultures were then positive. He was started on vancomycin yesterday. Consultation requested. He feels much better now. No back pain, abdominal pain, fever, chills, or sweats currently. No recent antibiotics. No immunosuppressants. No prior such episodes. He has no areas of skin infection that he is aware of. ALLERGIES: PENICILLIN, UNKNOWN REACTION. TOLERATES CEPHALOSPORINS. HABITS: He vapes. No illicit drugs. PRESENT MEDICATIONS: No immunosuppressants. FAMILY HISTORY: Positive for kidney stones and lung cancer. SOCIAL HISTORY: He lives locally. Single. Does not work outside the home. REVIEW OF SYSTEMS: , GI, respiratory, constitutional, skin, otherwise negative. PAST MEDICAL HISTORY: Anxiety only. PHYSICAL EXAMINATION: GENERAL: This is a young male, who appears actual age. No acute distress. VITAL SIGNS: Temperature shortly after arrival was up to 38.2, has since been afebrile. Pulse 66, respiratory rate 18, and blood pressure 133/80. SKIN: No suspicious lesions. He has areas of erythematous macules and papules over his face, forehead, and scalp. HEENT: Conjunctivae are normal. Pupils equal, round. The oral mucosa is well hydrated. NECK: No meningismus. LUNGS: Clear to auscultation and percussion. CARDIAC: Regular rate and rhythm. Peripheral pulses 2+. ABDOMEN: Nontender, soft. No organomegaly. No masses. BACK: No CVAT. EXTREMITIES: No clubbing, cyanosis, edema. He has no prosthetic devices. LABORATORY DATA: Blood cultures /2 sets MRSA susceptible to trimethoprim sulfa, vancomycin CEFERINO equal or less than 0.5. Repeat blood cultures 04/18, no growth so far. His white blood cell count on arrival 22.8, has since normalized. Hemoglobin 13.8, platelets are 278, differential is normal. Chemistry panel normal. Transaminases twice normal. Urinalysis, multiple abnormalities, which are reviewed. RADIOLOGY: Echocardiogram shows no evidence of infection. Chest x-ray also normal. Abdomen pelvic CT with the stone at the right UPJ. ASSESSMENT: 1. Methicillin-resistant Staphylococcus aureus bacteremia with infection, urologic source is likely, although somewhat of an unusual pathogen and urinary tract infection without hardware. He has no evidence of skin infection, primary bloodstream infection including endocarditis or alternative sources including lungs. 2. Nephrolithiasis and family history of the same. 3. Spondylosis of the spine. RECOMMENDATIONS: Continue vancomycin for 2-week course. Target trough 15-20, through May 02, then begin 2 weeks of trimethoprim sulfa double-strength twice daily. Set up for PICC and okay for discharge planning. Thank you very much for asking me to see him. PRAVEENA WAHL M.D. MANAGER [employer]S MANAGER [employer]S D I MT: Joseph
[2020-04-20] MEDS: LORazepam (*CRX) 0.5 MG TABLET PO (21:05)
[2020-04-21 01:30] VITALS: BP 115/51; PULSE 77; RESP 16; TEMP 36.5; O2SAT 98
[2020-04-21 02:00] VITALS: BP 115/51; PULSE 77; RESP 16; TEMP 36.5; O2SAT 98
[2020-04-21 05:43] VITALS: BP 120/46; PULSE 76; RESP 16; TEMP 36.7; O2SAT 97
[2020-04-21] MEDS: FAMOTIDINE 20 MG/2 ML VIAL IV PUSH (09:58)
[2020-04-21 10:00] VITALS: BP 132/69; PULSE 87; RESP 14; TEMP 36.6; O2SAT 99
[2020-04-21 14:00] VITALS: BP 123/72; PULSE 59; RESP 16; TEMP 36.4; O2SAT 98
[2020-04-21] MEDS: LIDOCAINE HCL 1% PF INJ 5 ML VIAL INFILTRATE (14:00)
--- NOTE | 2020-04-21 16:35 | PM.DS ---
DS: Admitting Diagnosis Admitting Diagnosis Admitting Diagnosis: urolithiasis/acute kidney injury/UTI DS: Discharge Diagnosis Discharge Diagnosis (1) Urolithiasis: Qualifiers: Urinary calculus location: lower urinary tract Qualified Code(s): N21.9 - Calculus of lower urinary tract, unspecified Code(s): N20.9 - Urinary calculus, unspecified Status: Acute Assessment and Plan: Patient presented with right flank pain with associated nausea and diaphoresis. CT showed right nephrolithiasis with obstructing 6 x 4 mm stone at right UPJ, associated mild hydronephrosis. He underwent cystoscopy with right retrograde pyelogram and right stent placement on 04/17/[address] Dsouza. He will need definitive stone management at a later date and will follow-up with urology as an outpatient. His pain resolved entirely. (2) Bacteremia: Code(s): R78.81 - Bacteremia Status: Acute Assessment and Plan: Patient had methicillin-resistant Staphylococcus aureus bacteremia in 2/2 initial blood culture bottles on 04/17. Source of infection is suspected to be . Additionally, patient reports possible skin infection 1 month ago following a haircut, therefore cutaneous source is possible. Denies IV drug use. Echo showed no evidence of vegetations. He was started on IV Rocephin (1 dose received prior to cultures drawn prior to going to OR) and transitioned to IV vancomycin. He was seen in consultation by Infectious Disease who recommended 2 weeks of IV vancomycin (until 05/02/20) followed by 2 weeks of p.o. double-strength Bactrim (until 05/17/20). He had a PICC line placed and he was educated on how to administer IV infusions. He felt comfortable with administering antibiotics at home with the help of his family. (3) Complicated UTI (urinary tract infection): Code(s): N39.0 - Urinary tract infection, site not specified Status: Acute Assessment and Plan: Suspect associated with obstructive uropathy now s/p right ureteral stent 04/17. UA grossly abnormal although urine culture is negative. He received 5 days of IV Rocephin. (4) Sepsis: Qualifiers: Sepsis type: sepsis due to unspecified organism Sepsis acute organ dysfunction status: with acute organ dysfunction Severe sepsis acute organ dysfunction type: acute renal failure Acute renal failure type: unspecified Severe sepsis shock status: without septic shock Qualified Code(s): A41.9 - Sepsis, unspecified organism; R65.20 - Severe sepsis without septic shock; N17.9 - Acute kidney failure, unspecified Code(s): A41.9 - Sepsis, unspecified organism Status: Acute Assessment and Plan: Evident by fever, tachycardia, leukocytosis, which all resolved. Suspected source urinary vs. bloodborne. Continue IV Vancomycin followed by Bactrim as above. (5) Acute kidney injury: Code(s): N17.9 - Acute kidney failure, unspecified Status: Resolved Assessment and Plan: Resolved; Suspect secondary to obstructive nephrolithiasis. Creatinine 1.0 at time of discharge. (6) Vaping nicotine dependence, tobacco product: Code(s): F17.290 - Nicotine dependence, other tobacco product, uncomplicated Status: Acute Assessment and Plan: Patient describes vaping with nicotine products. He was quite agitated about not being able to smoke during his hospital stay. He declined need for nicotine patch. I counseled him on smoking cessation for 4 minutes, however he is not interested in quitting smoking at this time. (7) Constipation: Qualifiers: Constipation type: unspecified constipation type Qualified Code(s): K59.00 - Constipation, unspecified Code(s): K59.00 - Constipation, unspecified Status: Acute Assessment and Plan: Resolved with miralax and dulcolax. He can continue OTC miralax and colace as needed. Increase activity. DS: Summary Hospital Course
[2020-04-21] MEDS: ACETAMINOPHEN 325 MG TABLET 650 MG PO (17:09)
[2020-04-21] MEDS: OXYBUTYNIN CHLORIDE 5 MG TABLET PO (17:18)
== END 2020-04-21 19:20 | disposition home or self-care (01) | DRG 720 ==
LOC: ANHED 20:22 → ANH2MED 20:58
PROVIDERS: Emergency Medicine Emergency Medical Services; Internal Medicine; Physician Assistant; Urology; Admitting Provider Family Medicine; Emergency Provider Emergency Medicine; PCP Physician Assistant; Visit Provider Physician Assistant
PROC: 0T768DZ Dilation of Right Ureter with Intraluminal Device, Via Natural or Artificial Opening Endoscopic (ICD-10-PCS; CPT 52352; principal; 2020-04-17 11:45)
DX: A41.02 Sepsis due to Methicillin resistant Staphylococcus aureus (principal); R65.20 Severe sepsis without septic shock; N13.6 Pyonephrosis; N17.9 Acute kidney failure, unspecified; K59.00 Constipation, unspecified; F41.9 Anxiety disorder, unspecified; F17.290 Nicotine dependence, other tobacco product, uncomplicated; M47.899 Other spondylosis, site unspecified
CPT/HCPCS: 36415; 36569; 71046; 74177; 74420; 80048; 80053; 80202; 81001; 83690; 83735; 85025; 87040; 87077; 87086; 87186; 93306; 96361; 96365; 96374; 96375; 96376; 99285; A9270; C1751; C1758; C1769; C2617; G0378; G0379; J0131; J0696; J2250; J2270; J2405; J2704; J3010; J3370; J7030; J7120; Q9966; Q9967

== ENCOUNTER 2020-04-23 08:11 | Emergency (ER) | payer SELFPAY ==
[2020-04-23 08:29] VITALS: BP 126/82; PULSE 104; RESP 16; TEMP 36.3; O2SAT 100
[2020-04-23 08:53] LABS: Basophils Absolute Auto 0.1 K/mm3 (0.0-0.1); Basophils Percent Auto 0.5 % (0.2-1.2); Eosinophils Absolute Auto 0.4 K/mm3 (0-0.3); Eosinophils Percent Auto 3.9 % (0-4.4); Hematocrit 42.5 % (42.0-52.0); Hemoglobin 14.3 g/dL (14.0-18.0); Immature Granulocyte Absolute 0.09 K/mm3 (0.00-0.031); Lymphocytes Percent Auto 22.6 % (18.3-44.2); Mean Corpuscular HGB Conc 33.6 g/dl (32-36); Mean Corpuscular Hemoglobin 30.3 pg (26-34); Monocytes Absolute Auto 0.7 K/mm3 (0.1-0.6); Monocytes Percent Auto 7.9 % (2.6-8.5); Neutrophils Percent Auto 64.1 % (45.5-73.1); Platelet Count Result 387 k/mm3 (150-375); Red Blood Count 4.72 M/mm3 (4.6-6.20); Red Cell Distribution Width 12.6 % (11.5-14.5); White Blood Count 9.3 K/mm3 (4.5-10.0)
[2020-04-23 09:04] LABS: Anion Gap 11 mmol/L (8-16); Blood Urea Nitrogen 15 mg/dL (9-20); Carbon Dioxide 25 mmol/L (22-30); Chloride 104 mmol/L (98-107); Estimated CRCL calculation 134 ml/min; Estimated Glomerular Filt Rate > 60; Glucose 92 mg/dL (75-110); Potassium 3.9 mmol/L (3.4-5.0); Sodium 140 mmol/L (137-145)
[2020-04-23] MEDS: FAMOTIDINE 20 MG/2 ML VIAL IV PUSH (09:05)
[2020-04-23] MEDS: diphenhydrAMINE HCl INJ 50 MG/ML VIAL 25 MG IV PUSH (09:05)
[2020-04-23 09:37] LABS: Vancomycin Trough 6.2 ug/mL (10.0-20.0)
[2020-04-23 09:59] VITALS: BP 128/78; PULSE 74; RESP 15; O2SAT 100
--- NOTE | 2020-04-23 10:08 | ED.GENADULT ---
HPI - General Adult General Chief complaint: Unspecified Stated complaint: picc line not working Time Seen by Provider: 04/23/20 08:21 History of Present Illness HPI narrative: Patient is a 34-year-old male who presents ER for a PICC line complication. Could not get it to flush today so he cannot give himself his vancomycin infusion. He does report that his face is much better today in the distribution of his typical eczema and its burning and swollen. He has been receiving vancomycin for MRSA bacteremia. No fevers or chills or sweats. No other complications at this time. No difficulty breathing or swallowing. Related Data Allergies Allergy/AdvReac Type Severity Reaction Status Date / Time Penicillins AdvReac Unknown Unknown Verified 04/16/20 22:10 Review of Systems Constitutional: Constitutional: Denies chills, Denies fatigue and Denies fever(s) ENT: Denies dysphagia, Denies throat swelling and Denies tongue swelling Cardiovascular: Cardiovascular: Denies chest pain Respiratory: Respiratory: Denies cough and Denies dyspnea Integumentary/Breasts: Skin/Breast: Reports erythema and Reports skin pain PMFSH Past Medical History Medical History Anxiety No pertinent past medical history Vaping nicotine dependence, tobacco product Family History Family History Grandparent Nephrolithiasis Lung cancer Father Lung cancer Mother Hypertension Social History Social History Smoking status: Former smoker Tobacco type: e-cigarettes/vaping Second hand tobacco smoke exposure: Yes Alcohol intake: never Substance use: never Gender identity (if verbalized by the patient): Male Spiritual care concerns: No Exam Narrative: Exam Narrative: GENERAL: Well-appearing, well-nourished, and in no acute distress. HEAD: Normocephalic, atraumatic. ENT: Mucous membranes moist. No swelling of the lips or tongue. CHEST: Clear to auscultation. No respiratory distress. HEART: Regular rate and rhythm. No murmur heard. Normal peripheral pulses. ABDOMEN: Soft, nontender, nondistended, normal active bowel sounds. EXTREMITIES: Normal range of motion. No edema. SKIN: Warm, dry, no rash. NEURO: No focal deficits. Alert and oriented x3. PSYCH: Normal mood and affect. Course Course Emergency Course: Discussed case with Dr. Carvajal. Recommends giving patient pretreatment of Benadryl or Pepcid which ever works better for the patient prior to his infusions. He does not recommending changing any dose of vancomycin at this time. Patient's face does look improved after IV Benadryl and Pepcid. Vital Signs Vital signs: Vital Signs Temperature 97.4 F L 04/23/20 08:29 Pulse Rate 104 H 04/23/20 08:29 Respiratory Rate 16 04/23/20 08:29 Blood Pressure 126/82 04/23/20 08:29 Pulse Oximetry 100 04/23/20 08:29 Temperature 97.4 F L 04/23/20 08:29 Pulse Rate 74 04/23/20 09:59 Respiratory Rate 15 04/23/20 09:59 Blood Pressure 128/78 04/23/20 09:59 Pulse Oximetry 100 04/23/20 09:59 Medical Decision Making Vital Signs Vital Signs: Vital Signs Temperature 97.4 F L 04/23/20 08:29 Pulse Rate 104 H 04/23/20 08:29 Respiratory Rate 16 04/23/20 08:29 Blood Pressure 126/82 04/23/20 08:29 Pulse Oximetry 100 04/23/20 08:29 Temperature 97.4 F L 04/23/20 08:29 Pulse Rate 74 04/23/20 09:59 Respiratory Rate 15 04/23/20 09:59 Blood Pressure 128/78 04/23/20 09:59 Pulse Oximetry 100 04/23/20 09:59 Lab Data Result diagrams: 04/23/20 08:42 04/23/20 08:42 Labs: Lab Results 04/23/20 04/23/20 04/23/20 Range/Units 08:42 08:42 08:42 WBC 9.3 (4.5-10.0) K/mm3 RBC 4.72 (4.6-6.20) M/mm3 Hgb 14.3 (14.0-18.0) g/dL Hct 42.5 (42.0-52.0) % MCV 90.0 (80-100) fl MCH 30.3 (26-34) pg MCHC 33.6 (32-36) g/dl RDW
[2020-04-23 10:43] VITALS: BP 118/62; PULSE 72; RESP 16; O2SAT 98
== END 2020-04-23 10:44 | disposition home or self-care (01) ==
PROVIDERS: Emergency Provider Emergency Medicine; PCP Physician Assistant
DX: L27.0 Generalized skin eruption due to drugs and medicaments taken internally (principal); T36.8X5A Adverse effect of other systemic antibiotics, initial encounter; R78.81 Bacteremia; A49.02 Methicillin resistant Staphylococcus aureus infection, unspecified site; Z87.891 Personal history of nicotine dependence; L25.3 Unspecified contact dermatitis due to other chemical products; L25.8 Unspecified contact dermatitis due to other agents
CPT/HCPCS: 36415; 80048; 80202; 85025; 96374; 96375; 99284; J1200

== ENCOUNTER 2020-05-04 07:06 | Outpatient (RCR) | payer SELFPAY ==
[2020-04-24 11:00] LABS: Hematocrit 41.1 % (42.0-52.0); Hemoglobin 13.8 g/dL (14.0-18.0); Mean Corpuscular HGB Conc 33.6 g/dl (32-36); Mean Corpuscular Hemoglobin 30.1 pg (26-34); Mean Corpuscular Volume 89.5 fl (80-100); Mean Platelet Volume 9.9 fl (7.4-10.4); Platelet Count Result 396 k/mm3 (150-375); Red Blood Count 4.59 M/mm3 (4.6-6.20); Red Cell Distribution Width 12.7 % (11.5-14.5); White Blood Count 6.2 K/mm3 (4.5-10.0)
[2020-04-24 11:13] LABS: Anion Gap 9 mmol/L (8-16); Blood Urea Nitrogen 14 mg/dL (9-20); Calcium 8.9 mg/dL (8.4-10.2); Carbon Dioxide 26 mmol/L (22-30); Chloride 105 mmol/L (98-107); Estimated Glomerular Filt Rate > 60; Glucose 89 mg/dL (75-110); Sodium 140 mmol/L (137-145)
[2020-04-24 11:39] LABS: Vancomycin Trough 20.3 ug/mL (10.0-20.0)
[2020-04-27 10:47] LABS: Hematocrit 40.1 % (42.0-52.0); Hemoglobin 13.7 g/dL (14.0-18.0); Mean Corpuscular HGB Conc 34.2 g/dl (32-36); Mean Corpuscular Hemoglobin 30.4 pg (26-34); Mean Corpuscular Volume 89.1 fl (80-100); Mean Platelet Volume 9.7 fl (7.4-10.4); Platelet Count Result 399 k/mm3 (150-375); Red Cell Distribution Width 12.2 % (11.5-14.5); White Blood Count 6.1 K/mm3 (4.5-10.0)
[2020-04-27 11:02] LABS: Anion Gap 9 mmol/L (8-16); Blood Urea Nitrogen 15 mg/dL (9-20); Calcium 8.7 mg/dL (8.4-10.2); Carbon Dioxide 27 mmol/L (22-30); Chloride 104 mmol/L (98-107); Estimated Glomerular Filt Rate > 60; Glucose 111 mg/dL (75-110); Potassium 3.7 mmol/L (3.4-5.0); Sodium 140 mmol/L (137-145)
[2020-05-01 10:47] LABS: Hematocrit 39.9 % (42.0-52.0); Hemoglobin 13.6 g/dL (14.0-18.0); Mean Corpuscular HGB Conc 34.1 g/dl (32-36); Mean Corpuscular Hemoglobin 29.7 pg (26-34); Mean Corpuscular Volume 87.1 fl (80-100); Mean Platelet Volume 9.9 fl (7.4-10.4); Platelet Count Result 340 k/mm3 (150-375); Red Blood Count 4.58 M/mm3 (4.6-6.20); Red Cell Distribution Width 12.2 % (11.5-14.5); White Blood Count 5.1 K/mm3 (4.5-10.0)
[2020-05-01 10:59] LABS: Anion Gap 8 mmol/L (8-16); Blood Urea Nitrogen 21 mg/dL (9-20); Calcium 8.9 mg/dL (8.4-10.2); Carbon Dioxide 26 mmol/L (22-30); Chloride 103 mmol/L (98-107); Estimated Glomerular Filt Rate > 60; Glucose 89 mg/dL (75-110); Potassium 3.9 mmol/L (3.4-5.0); Sodium 137 mmol/L (137-145)
[2020-05-01 11:34] LABS: Vancomycin Trough 14.3 ug/mL (10.0-20.0)
== END 2020-07-23 23:59 | disposition home or self-care (01) ==
LOC: ANHVASCINF 07:06
PROVIDERS: PCP Physician Assistant; Visit Provider Internal Medicine Infectious Disease
DX: N39.0 Urinary tract infection, site not specified (principal); R65.20 Severe sepsis without septic shock; R78.81 Bacteremia
CPT/HCPCS: 36415; 36592; 80048; 80202; 85027; 99211; G0463

== ENCOUNTER 2021-10-15 21:01 | Emergency (ER) | payer SELFPAY ==
[2021-10-15 21:21] VITALS: BP 147/78; PULSE 100; RESP 14; TEMP 36.4; O2SAT 99
--- NOTE | 2021-10-15 22:30 | ED.MALEGU ---
HPI - Male Genitourinary General Chief complaint: Urogenital-Male Stated complaint: blood in stool and urine. Time Seen by Provider: 10/15/21 21:56 Source: patient History of Present Illness HPI Narrative: Patient presents with back pain reports a history of stones and this episode feels like his prior stones. This pain is primarily in his back he also reporting some pain with urination and hematuria. He denies any abdominal pain denies any nausea vomiting or diarrhea denies any fevers or chills. Related Data Allergies Allergy/AdvReac Type Severity Reaction Status Date / Time Penicillins AdvReac Unknown Unknown Verified 10/15/21 22:18 Review of Systems Review of Systems: CONSTITUTIONAL: Denies fever, chills, or sweats. EYES: Denies visual changes, redness, or discharge. ENT: Denies rhinorrhea, congestion, sore throat, or otalgia. CARDIOVASCULAR: Denies chest pain, palpitations, or edema. RESPIRATORY: Denies cough or dyspnea. GASTROINTESTINAL: Denies abdominal pain, nausea, vomiting, or diarrhea. GENITOURINARY: Denies dysuria or hematuria. SKIN: Denies rash or itching. MUSCULOSKELETAL: Denies joint pain, or myalgia. NEUROLOGIC: Denies headache, numbness, dizziness, or weakness. PSYCHIATRIC: Denies anxiety or depression. All systems reviewed & are unremarkable except as noted in HPI and below PMFSH Past Medical History Medical History Anxiety No pertinent past medical history Vaping nicotine dependence, tobacco product Family History Family History Grandparent Nephrolithiasis Lung cancer Father Lung cancer Mother Hypertension Social History Social History Smoking status: Former smoker Tobacco type: e-cigarettes/vaping Second hand tobacco smoke exposure: Yes Alcohol intake: never Substance use: never Gender identity (if verbalized by the patient): Male Spiritual care concerns: No Exam Narrative: GENERAL: Well-appearing, well-nourished, and in no acute distress. HEAD: Normocephalic, atraumatic. EYES: PERRLA and EOMI. ENT: Nares clear, no rhinorrhea or epistaxis. Mucous membranes moist. NECK: Supple. No masses. No JVD ABDOMEN: Soft, nontender, nondistended EXTREMITIES: Normal range of motion. No edema. SKIN: Warm, dry, no rash. NEURO: No focal deficits. Alert and oriented x3. PSYCH: Normal mood and affect. Course Reevaluation(s) Reevaluation #1: While giving a urine sample patient had and severe pain and was able to capture his stone in his sample cup. He had complete resolution of his presenting symptoms and he declined further work-up. This is reasonable patient is already seeing outpatient neurology for his recurrent stones. Date: 10/15/21 Time: 22:31 Vital Signs Vital signs: Vital Signs Temperature 36.4 C L 10/15/21 21:21 Pulse Rate 100 10/15/21 21:21 Respiratory Rate 14 10/15/21 21:21 Blood Pressure 147/78 H 10/15/21 21:21 Pulse Oximetry 99 10/15/21 21:21 Temperature 36.4 C L 10/15/21 21:21 Pulse Rate 100 10/15/21 21:21 Respiratory Rate 14 10/15/21 21:21 Blood Pressure 147/78 H 10/15/21 21:21 Pulse Oximetry 99 10/15/21 21:21 MDM - Male Genitourinary MDM Narrative Medical decision making narrative: H&P as above, vss, pt looks clinically well, exam reassuring, labs and imaging considered. Symptomatic relief available as needed, however when giving a urine sample he passed a stone that was visualized in his sample cup on reevaluation pt continues to looks clinically well and had complete resolution of his symptoms. Suspect ureteral stone, dns UTI, severe sepsis, severe dehydration, acute abdomen. plan to tx/monitor as op w/ pcm f/u findings/plan discussed with pt, pt agree/comfortable with plan, return precautions given Discharge Plan Discharge Clinical Impression: Calculus, ureteral Patient Disposition: Home, Self-Care Condi
--- NOTE | 2021-10-15 22:38 | PC.NURSE ---
RN went to collect urine. Pt had passed stone in urine cup. ERP made aware. Will dc
== END 2021-10-15 22:45 | disposition home or self-care (01) ==
LOC: ANHED 22:51
PROVIDERS: Emergency Provider Emergency Medicine; PCP Physician Assistant
DX: N20.1 Calculus of ureter (principal); Z87.442 Personal history of urinary calculi; Z87.891 Personal history of nicotine dependence
CPT/HCPCS: 99281

== ENCOUNTER 2023-09-15 13:00 | Outpatient (CLI) | payer BC, SELFPAY ==
--- NOTE | ~2023-09-15 | CT_ITS ---
Non-contrast CT scan of the Abdomen and Pelvis Clinical indication: Kidney stone Technique: 2.5 mm axial scans were obtained through the abdomen and pelvis without intravenous or or al contrast. Dose reduction technique was used on this scan by utilizing automated exposure control a nd iterative reconstruction technique. The dose-length product (DLP) was 619.64 mGy-cm. Findings: Images through the lung bases reveal no abnormalities. Bilateral nonobstructing renal stones are present, largest at the right side measuring 9 mm. No urete ral stone or hydronephrosis. The liver, spleen, pancreas, gallbladder, and adrenals appear normal. There is no aortic aneurysm. There is no evidence of bowel obstruction. Images through the pelvis were performed. There is no evidence of ascites or lymphadenopathy. Urinary bladder unremarkable. No pelvic mass seen. Impression: Bilateral nonobstructing nephrolithiasis, as above. Reviewed, dictated and finalized at [facility]. Impression: Bilateral nonobstructing nephrolithiasis, as above.
--- NOTE | ~2023-09-15 | XR_ITS ---
EXAMINATION: XR abdomen/kub 1V DATE: 09/15/2023 13:24 INDICATION: Calculus of kidney. Calculus of ureter. TECHNIQUE: A supine view of the abdomen on 2 radiographs was obtained. COMPARISON: CT abdomen and pelvis 09/15/23 FINDINGS: There are no dilated loops of bowel. There are approximately 3 stones in right kidney measu ring up to 7 mm. There are 2 stones in left kidney measuring up to 5 mm. IMPRESSION: 1. Bilateral kidney stones. Reviewed, dictated and finalized at location E. IMPRESSION: 1. Bilateral kidney stones.
== END 2023-09-15 13:01 | disposition home or self-care (01) ==
LOC: ANHIMG 13:01
PROVIDERS: PCP Physician Assistant; Visit Provider Physician Assistant
DX: N20.0 Calculus of kidney (principal)
CPT/HCPCS: 74018; 74176

== ENCOUNTER 2025-03-27 20:11 | Emergency (ER) | payer SELFPAY ==
--- NOTE | ~2025-03-27 | XR_ITS ---
XR femur RT min 2V INDICATION: pain COMPARISON: None FINDINGS: Frontal, lateral and oblique views of the right femur demonstrate no acute fracture or dislocation. IMPRESSION: No acute fracture or dislocation. Reviewed, dictated and finalized at location S.
--- NOTE | ~2025-03-27 | XR_ITS ---
XR knee RT min 4V INDICATION: playing soccer and felt pop . COMPARISON: None. FINDINGS: Frontal, lateral and oblique views of the right knee demonstrate no acute fracture or dislocation. There is no joint effusion. IMPRESSION: Radiographic examination of the right knee demonstrates no acute fracture or dislocation. Reviewed, dictated and finalized at location S. IMPRESSION: Radiographic examination of the right knee demonstrates no acute fracture or di slocation.
--- NOTE | ~2025-03-27 | CT_ITS ---
CT LE RT wo con INDICATION:soccer injury, quadriceps injury versus knee COMPARISON: None. TECHNIQUE: Noncontrast axial CT images of the right lower extremity the level of the acetabulum through the proximal tibia. were obtained followed by multiplanar reconstruction in the coronal and sagittal planes. On a separate workstation, volumetric 3-D rendering images were created. FINDINGS: No acute fracture or dislocation seen. No significant joint effusion. Quadriceps tendon and patellar tendons are intact. Soft tissues are grossly unremarkable. IMPRESSION: No acute fracture or dislocation. Soft tissues are grossly unremarkable. The patient has persistent pain follow-up outpatient MRI can be done for further evaluation. All CT scans at this facility are performed using low dose modulation techniques as appropriate to perform exam including the following: automated exposure control; use of iterative reconstruction technique; adjustment of the mA and/or kV according to patient size (this includes techniques or standardized protocols for targeted exams where dose is matched to indication/reason for exam). Reviewed, dictated and finalized at location S. IMPRESSION: No acute fracture or dislocation. Soft tissues are grossly unremarkable. The patient has persistent pain follow-u p outpatient MRI can be done for further evaluation. All CT scans at this facility are performed using low dose modulation techniqu es as appropriate to perform exam including the following: automated exposure c ontrol; use of iterative reconstruction technique; adjustment of the mA and/or kV according to patient size (this includes techniques or standardized protocol s for targeted exams where dose is matched to indication/reason for exam).
[2025-03-27 20:16] VITALS: BP 142/89; PULSE 81; RESP 16; TEMP 36.7; O2SAT 100
--- NOTE | 2025-03-27 21:30 | ED_ITS ---
HPI - Extremity Injury (Lower) General Chief Complaint: Extremity Injury, Lower Stated Complaint: Right leg pain while playing Soccer Time Seen by Provider: 03/27/25 21:04 History of Present Illness HPI Narrative: 39-year-old male with no pertinent past medical history presenting to the emergency department after playing soccer and sustaining any injury. Patient states he took a jump and pivot motion on landing with significant pain started shooting up his right knee up towards his thigh. Was barely able to bear weight afterwards. Now having throbbing pain in his proximal knee and distal thigh area. Having difficulty extending his right lower extremity. Plantar and ankle dorsiflexion full. No paresthesias or numbness. No previous injuries to the thigh or knee. No posterior thigh or calf pain. No history of anticoagulation use. Related Data Allergies Allergy/AdvReac Type Severity Reaction Status Date / Time Penicillins AdvReac Unknown Unknown Verified 03/27/25 20:13 Review of Systems Review of Systems: As reviewed above in HPI [facility] Past Medical History Medical History Vaping nicotine dependence, tobacco product Anxiety No pertinent past medical history Family History Family History Grandparent Nephrolithiasis Lung cancer Father Lung cancer Mother Hypertension Social History Social History Smoking status: Former smoker Tobacco type: e-cigarettes/vaping Second hand tobacco smoke exposure: Yes Alcohol intake: never Substance use: never Gender identity (if verbalized by the patient): Male Spiritual care concerns: No Exam Narrative: GENERAL: [Well-appearing, well-nourished, and in no acute distress.] HEAD: [Normocephalic, atraumatic.] EYES: [PERRLA and EOMI.] ENT: Nares clear, no rhinorrhea or epistaxis. Mucous membranes moist. NECK: Supple. CHEST: [Clear to auscultation. No respiratory distress.] HEART: [Regular rate and rhythm]. No murmur heard. [Normal peripheral pulses.] ABDOMEN: [Soft, nondistended], [nontender], [No rigidity or guarding] EXTREMITIES: tenderness to palpation over the mid to distal thigh as well as the proximal knee. No instability with the knee. No valgus or varus stress laxity. negative Bethany's testing. Ankle plantar and dorsiflexion 5/5. Plantar flexion elicits pain at the distal femur area. No overlying skin changes or deformity. No popliteal fossa masses. Impaired extensor mechanism with difficulty initiating a extension at the knee. Able to hold a passively extended knee however. 2+ dorsalis pedis pulse. Warm extremity. SKIN: Warm, dry, no rash. NEURO: [No focal deficits]. Alert and oriented [x3.] PSYCH: [Normal mood and affect.] Course Vital Signs Vital signs: Vital Signs Temperature 36.7 C 03/27/25 20:16 Pulse Rate 81 03/27/25 20:16 Respiratory Rate 16 03/27/25 20:16 Blood Pressure 142/89 H 03/27/25 20:16 Pulse Oximetry 100 03/27/25 20:16 Oxygen Delivery Room Air 03/27/25 20:16 Temperature 36.7 C 03/27/25 20:16 Pulse Rate 76 03/27/25 22:56 Respiratory Rate 18 03/27/25 22:56 Blood Pressure 136/82 03/27/25 22:56 Pulse Oximetry 98 03/27/25 22:56 Oxygen Delivery Room Air 03/27/25 20:16 MDM - Extremity Injury (Lower) MDM Narrative Medical decision making narrative: 39-year-old male with no pertinent past medical history presenting to the emergency department after playing soccer and sustaining any injury. Patient states he took a jump and pivot motion on landing with significant pain started shooting up his right knee up towards his thigh. Was barely able to bear weight afterwards. Now having throbbing pain in his proximal knee and distal thigh area. Having difficulty extending his right lower extremity. Plantar and ankle dorsiflexion full. No paresthesias or numbness. No previous injuries to the thigh or knee. No posterior thigh or calf pain. No history of anticoagulation use. tenderness to palpation over the mid to distal thigh as well as the proximal knee. No instability with the knee. No valgus or varus stress laxity. negative Bethany's testing. Ankle plantar and dorsiflexion 5/5. Plantar flexion elicits pain at the distal femur area. No overlying skin changes or deformity. No popliteal fossa masses. Impaired extensor mechanism with difficulty initiating a extension at the knee. Able to hold a passively extended knee however. 2+ dorsalis pedis pulse. Warm extremity. Patient is hemodynamically stable with good perfused pulses. Suspect quadriceps injury versus internal derangement of the knee. Possibility of a fracture or patellar dislocation less likely. X-rays were obtained and were unremarkable. CT with the lower extremity was pain at this time patient given pain control medications and Robaxin. CT scan shows no acute fracture dislocation the soft tissues are grossly unremarkable. Quadriceps tendon and patellar tendon are intact. No joint effusion. Likely needs MRI outpatient. Relayed this to the patient and he was placed in a knee immobilizer and crutches with ambulation assistance. Pain control medications sent to his pharmacy and orthopedics referral provided. Safe for discharge home at this time. Medical Records Attestation: I reviewed the patient's medical records. Imaging Data Attestation: I personally reviewed and interpreted this imaging study as follows: My impression: Impressions Knee X-Ray 03/27/25 20:44 IMPRESSION: Radiographic examination of the right knee demonstrates no acute fracture or dislocation. Femur X-Ray 03/27/25 20:47 IMPRESSION: No acute fracture or dislocation. Lower Extremity CT 03/27/25 21:50 IMPRESSION: No acute fracture or dislocation. Soft tissues are grossly unremarkable. The patient has persistent pain follow-up outpatient MRI can be done for further evaluation. All CT scans at this facility are performed using low dose modulation techniques as appropriate to perform exam including the following: automated exposure control; use of iterative reconstruction technique; adjustment of the mA and/or kV according to patient size (this includes techniques or standardized protocols for targeted exams where dose is matched to indication/reason for exam). Discharge Plan Discharge Clinical Impression: Injury while playing soccer, Acute pain of right knee, Acute pain of right thigh Patient Disposition: Home Condition: Stable Instructions: Antibiotic Form, Knee Pain (ED), Knee Immobilizer (ED) Additional Instructions: The x-rays and CT scan showed no acute findings with the bony structures or the soft tissues. The quadriceps tendons and patellar tendons are intact. No joint effusion. Given the pivoting injury while playing soccer most likely injury is internal into the knee with meniscus or collateral ligament injury. Will need an MRI to confirm. We will send you home with pain control medications and a knee immobilizer as well as crutches. Call the provide orthopedics provider for outpatient evaluation and MRI imaging. Return with any emergent concerns as worsening pain, losing sensation in the extremity, numbness, tingling, cool or cold extremity Or any other emergent concerns. Patient Language: [place] Prescriptions: New hydrocodone-acetaminophen 5-325 mg tablet 1 tablet PO Q8H PRN (Reason: pain) Qty: 14 0RF ketorolac 10 mg tablet 10 mg PO Q8H PRN (Reason: pain) 5 Days Qty: 20 0RF Rx Instructions: maximum total duration of 5 days from all oral, intranasal, or parenteral formulations lidocaine 5 % adhesive patch,medicated 1 patch topical DAILY Qty: 15 0RF Rx Instructions: leave on most painful area for up to 12 hrs No Action diphenhydramine HCl [Benadryl] 25 mg capsule 50 mg PO BID Qty: 20 0RF Rx Instructions: Take 15-30 minutes before your infusion. oxybutynin chloride 5 mg Tablet 5 mg PO TID PRN (Reason: Dysuria) Qty: 60 0RF Follow-up/Referrals: Oscar,KIRSTEN Sung [Primary Care Provider, Unknown] Lupillo Guaman MD [Physician, Orthopedics] - 3 Days Referral Note: Knee injury while playing soccer, suspect internal knee injury Stand Alone Forms: Work/School Release IP Time of Disposition: 22:17
[2025-03-27] MEDS: HYDROcodone/acetaminophen (*CRX) 5-325 MG TABLET 1 TAB PO (22:06)
[2025-03-27 22:45] VITALS: BP 136/82; PULSE 76; RESP 18; O2SAT 98
--- NOTE | 2025-03-27 22:49 | PC.NURSE ---
pt put in knee immobilizer. RN demonstrated crutch training. pt verbalized understanding and demonstrated using the crutches.
[2025-03-27 22:56] VITALS: BP 136/82; PULSE 76; RESP 18; O2SAT 98
== END 2025-03-27 23:01 | disposition home or self-care (01) ==
PROVIDERS: Emergency Provider Student in an Organized Health Care Education/Training Program; PCP Physician Assistant
DX: S79.921A Unspecified injury of right thigh, initial encounter (principal); S89.91XA Unspecified injury of right lower leg, initial encounter; Z87.891 Personal history of nicotine dependence; X50.9XXA Other and unspecified overexertion or strenuous movements or postures, initial encounter; Y93.66 Activity, soccer
CPT/HCPCS: 73552; 73564; 73700; 99284; A9270